=== PATIENT | male | born 1945 | race Caucasian/White ===

== ENCOUNTER 2016-08-18 11:30 | Outpatient (CLI) | payer MEDICARE, BC | END 2016-08-18 11:31 | disposition home or self-care (01) | DX: I48.91 Unspecified atrial fibrillation (principal); Z79.01 Long term (current) use of anticoagulants ==

== ENCOUNTER 2016-09-16 13:42 | Outpatient (CLI) | payer MEDICARE, BC | END 2016-09-16 13:43 | disposition home or self-care (01) | DX: I48.91 Unspecified atrial fibrillation (principal); Z79.01 Long term (current) use of anticoagulants ==

== ENCOUNTER 2016-10-13 12:14 | Outpatient (CLI) | payer BC, MEDICARE, OTHER ==
[2016-10-13 13:07] LABS: PT - PROTHROMBIN TIME 23.1 secs (9.9-12.6)
== END 2016-10-13 12:15 | disposition home or self-care (01) ==
LOC: LAB 12:14
PROVIDERS: ATTEND Pharmacist
DX: I48.91 Unspecified atrial fibrillation (principal)
CPT/HCPCS: 36415; 85610

== ENCOUNTER 2016-10-26 12:13 | Outpatient (CLI) | payer OTHER ==
[2016-10-26 13:34] LABS: INR 2.4 (0.8-1.2); PT - PROTHROMBIN TIME 26.9 secs (9.9-12.6)
== END 2016-10-26 12:14 | disposition home or self-care (01) ==
LOC: LAB 12:13
PROVIDERS: ATTEND Pharmacist
DX: I48.91 Unspecified atrial fibrillation (principal)
CPT/HCPCS: 36415; 85610

== ENCOUNTER 2016-11-23 11:44 | Outpatient (CLI) | payer MEDICARE ==
[2016-11-23 12:42] LABS: INR 2.3 (0.8-1.2); PT - PROTHROMBIN TIME 25.5 secs (9.9-12.6)
== END 2016-11-23 11:45 | disposition home or self-care (01) ==
LOC: LAB 11:44
PROVIDERS: ATTEND Pharmacist
DX: I48.91 Unspecified atrial fibrillation (principal); Z79.01 Long term (current) use of anticoagulants
CPT/HCPCS: 36415; 85610

== ENCOUNTER 2016-12-13 13:57 | Outpatient (CLI) | payer MEDICARE ==
[2016-12-13 14:37] LABS: INR 2.2 (0.8-1.2); PT - PROTHROMBIN TIME 24.3 secs (9.9-12.6)
== END 2016-12-13 13:58 | disposition home or self-care (01) ==
LOC: LAB 13:57
PROVIDERS: ATTEND Pharmacist
DX: I48.91 Unspecified atrial fibrillation (principal); Z79.01 Long term (current) use of anticoagulants
CPT/HCPCS: 36415; 85610

== ENCOUNTER 2017-01-08 15:24 | Outpatient (CLI) | payer MEDICARE, BC ==
[2017-01-08 15:51] LABS: INR 2.9 (0.8-1.2); PT - PROTHROMBIN TIME 32.6 secs (9.9-12.6)
== END 2017-01-08 15:25 | disposition home or self-care (01) ==
LOC: LAB 15:24
PROVIDERS: ATTEND Pharmacist
DX: I48.91 Unspecified atrial fibrillation (principal); Z79.01 Long term (current) use of anticoagulants
CPT/HCPCS: 36415; 85610

== ENCOUNTER 2017-01-22 15:02 | Emergency (ER) | payer MEDICARE, BC ==
[2017-01-22 15:16] VITALS: BP 137/82
--- NOTE | 2017-01-22 16:00 | ED Physician Documentation ---
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 It has increased in frequency the last few days. He has noticed streaks of blood on the toilet paper. He denies rectal pain or abdominal pain. He takes Coumadin for paroxysmal atrial fibrillation, and his last INR was 2.9. He has skipped 2 doses of Coumadin in the past 5 days because of the rectal bleeding. 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 Review of Systems Constitutional: denies: Fever Nose: denies: Congestion Throat: denies: Sore throat Cardiac: denies: Chest pain / pressure, Palpitations Respiratory: denies: Dyspnea, Cough GI: reports: Constipation, Bloody / black stool. denies: Abdominal Pain, Nausea , Vomiting : denies: Dysuria Skin: denies: Rash Musculoskeletal: reports: Back pain (chronically) Neurologic: denies: Focal weakness, Numbness, Headache PD PAST MEDICAL HISTORY - Past Medical History Cardiovascular: Atrial fibrillation Respiratory: COPD Neuro: CVA Endocrine/Autoimmune: None Musculoskeletal: Chronic back pain - Present Medications Home Medications: Ambulatory Orders Medication Instructions Recorded Confirmed Alfuzosin HCl [Alfuzosin HCl ER] 03/13/15 03/13/15 Atorvastatin [Lipitor] 03/13/15 03/13/15 Bisacodyl [Dulcolax] 03/13/15 03/13/15 Doxazosin [Cardura] 03/13/15 03/13/15 Formoterol Fumarate [Foradil] 03/13/15 03/13/15 Methadone 03/13/15 03/13/15 Omeprazole [PriLOSEC] 1 tab PO DAILY 03/13/15 03/13/15 Sennosides 03/13/15 03/13/15 Testosterone Micronized 03/13/15 03/13/15 Warfarin Sodium [Coumadin] 03/13/15 03/13/15 amLODIPine [Norvasc] 03/13/15 03/13/15 Hydrocortisone Acetate [Anucort-Hc] 25 mg RC BID PRN #10 supp.rect 01/22/17 - Allergies Allergies/Adverse Reactions: Allergies Allergy/AdvReac Type Severity Reaction Status Date / Time phenytoin sodium * Allergy Rash Verified 03/13/15 13:04 [From Dilantin] phenytoin sodium extended * Allergy Rash Verified 03/13/15 13:04 [From Dilantin] - Social History Does the pt smoke?: No Smoking Status: Never smoker Does the pt drink ETOH?: No Does the pt have substance abuse?: No - Immunizations Immunizations are current?: Yes PD ED PE NORMAL - Vitals Vital signs reviewed: Yes (Borderline hypertension initially.) - General General: Alert and oriented X 3, Well developed/nourished - HEENT HEENT: Atraumatic, EOMI, Moist mucous membranes, Pharynx benign - Neck Neck: No adenopathy, No JVD - Cardiac Cardiac: RRR, No murmur - Respiratory Respiratory: No respiratory distress, Clear bilaterally - Abdomen Abdomen: Normal bowel sounds, Soft, Non tender, Other (Stool heme positive.) - Back Back: No CVA TTP - Derm Derm: No rash - Extremities Extremities: No edema, No calf tenderness / cord - Neuro Neuro: Alert and oriented X 3, No motor deficit, No sensory deficit PD ED PE EXPANDED - Rectal Rectal: Heme Occult Pos - QC +, Hemorrhoid (internal) Results - Vitals Vitals: Oxygen O2 Source Room air - Labs Labs: Laboratory Tests 01/22/17 01/22/17 16:20 16:20 WBC 6.7 RBC 5.26 Hgb 15.2 Hct 45.6 MCV 86.7 MCH 29.0 MCHC 33.4 RDW 13.9 Plt Count 275 MPV 7.0 L Neut # 4.2 Lymph # 1.7 Alger # 0.6 Eos # 0.1 Baso # 0.1 Absolute Nucleated RBC 0.00 Nucleated RBCs 0.0 PT 16.6 H INR 1.5 H PD MEDICAL DECISION MAKING - ED course Complexity details: reviewed results, re-evaluated patient, considered differential, d/w patient ED course: The patient's presentation is most consistent with internal hemorrhoids. There is no fecal impaction noted on rectal exam, and no evidence of external hemorrhoids. No thrombosed hemorrhoids were detected. His CBC reveals normal hemoglobin and hematocrit. His INR is subtherapeutic at 1.5. I discussed with him the likely cause of his symptoms, treatment options for constipation, outpatient follow-up, as well as potentially worrisome signs or symptoms that should prompt reevaluation in the emergency department. He is being discharged with a prescription for Anusol HC. Departure - Departure Disposition: 01 Home, Self Care Clinical Impression: Internal hemorrhoid, bleeding, History of Coumadin therapy Condition: Stable Instructions: ED Hemorrhoids Follow-Up: [facility] [Provider Group] Prescriptions: Hydrocortisone Acetate [Anucort-Hc] 25 mg RC BID PRN #10 supp.rect PRN Reason: Rectal Discomfort Comments: 1. Continue using stool softeners, and consider fruits such as prunes, plums, apricots, and peaches. 2. Try to avoid straining when having bowel movements. 3. Follow-up with your primary physician next week as scheduled. 4. Return to the emergency department if you develop increasing rectal bleeding , increasing abdominal pain, or otherwise worsening symptoms. Discharge Date/Time: 01/22/17 17:04
[2017-01-22 16:29] LABS: BASOPHILS # (AUTO) 0.1 10^3/uL (0.0-0.1); BASOPHILS % (AUTO) 1.1 %; EOSINOPHILS # (AUTO) 0.1 10^3/uL (0.0-0.7); EOSINOPHILS % (AUTO) 1.6 %; HCT - HEMATOCRIT 45.6 % (42.0-52.0); HGB - HEMOGLOBIN 15.2 g/dL (14.0-18.0); LYMPHOCYTES # (AUTO) 1.7 10^3/uL (1.5-3.5); LYMPHOCYTES % (AUTO) 25.9 %; MEAN CORPUSCULAR HGB CONC 33.4 g/dL (32.0-36.0); MEAN CORPUSCULAR VOLUME 86.7 fL (80.0-94.0); MONOCYTES # (AUTO) 0.6 10^3/uL (0.0-1.0); MONOCYTES % (AUTO) 9.6 %; NEUTROPHILS # (AUTO) 4.2 10^3/uL (1.5-6.6); NEUTROPHILS % (AUTO) 61.8 %; RED BLOOD COUNT 5.26 10^6/uL (4.70-6.10); RED CELL DISTRIBUTION WIDTH 13.9 % (12.0-15.0); UNCORRECTED WHITE BLOOD COUNT 6.7 x10^3/uL; WHITE BLOOD COUNT 6.7 x10^3/uL (4.8-10.8)
[2017-01-22 16:35] LABS: INR 1.5 (0.8-1.2); PT - PROTHROMBIN TIME 16.6 secs (9.9-12.6)
== END 2017-01-22 17:04 | disposition home or self-care (01) ==
LOC: ED 15:02
DX: K64.8 Other hemorrhoids (principal); Z79.01 Long term (current) use of anticoagulants; M19.90 Unspecified osteoarthritis, unspecified site; J44.9 Chronic obstructive pulmonary disease, unspecified; Z86.73 Personal history of transient ischemic attack (TIA), and cerebral infarction without residual deficits
CPT/HCPCS: 36415; 85025; 85610; 99283

== ENCOUNTER 2017-02-05 11:40 | Outpatient (CLI) | payer MEDICARE, BC ==
[2017-02-05] MEDS ORDERED: IOPAMIDOL-300 100 ML VIAL ONE (11:57)
[2017-02-05] MEDS ORDERED: IOPAMIDOL-300 50 ML VIAL ONE (11:57)
[2017-02-05] MEDS ORDERED: IOPAMIDOL-300 100 ML VIAL IVP ONE (13:36)
[2017-02-05] MEDS ORDERED: IOPAMIDOL-300 50 ML VIAL PO ONE (13:38)
--- NOTE | 2017-02-05 17:16 | CT Report ---
CT OF THE ABDOMEN AND PELVIS WITH AND WITHOUT CONTRAST: 02/05/2017 CLINICAL INDICATION: History of right renal cell carcinoma, status post nephrectomy. TECHNIQUE: Axial CT images of the abdomen and pelvis were obtained prior to and following 100 mL of I sovue-300 intravenously as well as oral contrast. No previous CT is available for comparison. FINDINGS: Limited evaluation of the lung bases is unremarkable. ABDOMEN: On the unenhanced images, there is no evidence of left nephrolithiasis. The left kidney demo nstrates normal enhancement. The liver, spleen, pancreas and adrenal glands are unremarkable. Postope rative changes of right nephrectomy are present, with no evidence of recurrent or residual mass in th e right nephrectomy bed. No bowel dilatation, free gas, or free fluid is present. No abdominal adenop athy is seen. PELVIS: The pelvic organs and urinary bladder appear unremarkable. No pelvic adenopathy or free fluid is present. The osseous structures demonstrate degenerative changes. There is a sclerotic focus in the right cely c wing, likely representing a bone island, with no cortical destruction. IMPRESSION: POSTOPERATIVE CHANGES OF RIGHT NEPHRECTOMY. NO EVIDENCE OF METASTATIC DISEASE. In accordance with CT protocol optimization, one or more of the following dose reduction techniques w ere utilized for this exam: automated exposure control, adjustment of mA and/or KV based on patient size, or use of iterative reconstructive technique. JOB #: [id number] EXT JOB #:[id number]
== END 2017-02-05 11:41 | disposition home or self-care (01) ==
LOC: DI 11:40
PROVIDERS: ATTEND Internal Medicine
DX: R14.0 Abdominal distension (gaseous) (principal); Z85.528 Personal history of other malignant neoplasm of kidney; Z90.5 Acquired absence of kidney
CPT/HCPCS: 74178; Q9967

== ENCOUNTER 2017-02-10 13:37 | Outpatient (CLI) | payer MEDICARE, BC ==
[2017-02-10 13:54] LABS: INR 3.1 (0.8-1.2); PT - PROTHROMBIN TIME 35.2 secs (9.9-12.6)
== END 2017-02-10 13:38 | disposition home or self-care (01) ==
LOC: LAB 13:37
PROVIDERS: ATTEND Pharmacist
DX: I48.91 Unspecified atrial fibrillation (principal); Z79.01 Long term (current) use of anticoagulants
CPT/HCPCS: 36415; 85610

== ENCOUNTER 2017-08-12 11:33 | Outpatient (CLI) | payer BC, OTHER ==
[2017-08-12 11:54] LABS: INR 2.5 (0.8-1.2); PT - PROTHROMBIN TIME 27.4 secs (9.9-12.6)
== END 2017-08-12 11:34 | disposition home or self-care (01) ==
LOC: LAB.F 11:33 → LAB 11:34
PROVIDERS: ATTEND Internal Medicine
DX: I48.91 Unspecified atrial fibrillation (principal); Z79.01 Long term (current) use of anticoagulants
CPT/HCPCS: 36415; 85610

== ENCOUNTER 2017-09-12 17:06 | Outpatient (CLI) | payer MEDICARE, BC ==
[2017-09-12 18:24] LABS: INR 2.4 (0.8-1.2); PT - PROTHROMBIN TIME 25.7 secs (9.9-12.6)
== END 2017-09-12 17:07 | disposition home or self-care (01) ==
LOC: LAB 17:06
PROVIDERS: ATTEND Internal Medicine
DX: I48.91 Unspecified atrial fibrillation (principal); Z79.01 Long term (current) use of anticoagulants
CPT/HCPCS: 36415; 85610

== ENCOUNTER 2017-10-20 12:57 | Outpatient (CLI) | payer MEDICARE, BC ==
[2017-10-20 13:26] LABS: INR 1.4 (0.8-1.2); PT - PROTHROMBIN TIME 15.4 secs (9.9-12.6)
== END 2017-10-20 12:58 | disposition home or self-care (01) ==
LOC: LAB 12:57
PROVIDERS: ATTEND Pharmacist
DX: I48.91 Unspecified atrial fibrillation (principal); Z79.01 Long term (current) use of anticoagulants
CPT/HCPCS: 36415; 85610

== ENCOUNTER 2017-11-03 11:50 | Outpatient (CLI) | payer MEDICARE, BC ==
[2017-11-03 12:27] LABS: INR 2.2 (0.8-1.2); PT - PROTHROMBIN TIME 23.7 secs (9.9-12.6)
== END 2017-11-03 11:51 | disposition home or self-care (01) ==
LOC: LAB 11:50
PROVIDERS: ATTEND Pharmacist
DX: I48.91 Unspecified atrial fibrillation (principal); Z79.01 Long term (current) use of anticoagulants
CPT/HCPCS: 36415; 85610

== ENCOUNTER 2017-11-15 14:47 | Outpatient (CLI) | payer MEDICARE, BC ==
[2017-11-15 15:29] LABS: INR 1.8 (0.8-1.2); PT - PROTHROMBIN TIME 20.3 secs (9.9-12.6)
== END 2017-11-15 14:48 | disposition home or self-care (01) ==
LOC: LAB 14:47
PROVIDERS: ATTEND Pharmacist
DX: I48.91 Unspecified atrial fibrillation (principal); Z79.01 Long term (current) use of anticoagulants
CPT/HCPCS: 36415; 85610

== ENCOUNTER 2017-12-14 15:07 | Outpatient (CLI) | payer MEDICARE, BC ==
[2017-12-14 16:07] LABS: INR 2.6 (0.8-1.2); PT - PROTHROMBIN TIME 28.2 secs (9.9-12.6)
== END 2017-12-14 15:08 | disposition home or self-care (01) ==
LOC: LAB 15:07
PROVIDERS: ATTEND Pharmacist
DX: I48.91 Unspecified atrial fibrillation (principal); Z79.01 Long term (current) use of anticoagulants
CPT/HCPCS: 36415; 85610

== ENCOUNTER 2018-01-12 13:23 | Outpatient (CLI) | payer MEDICARE, BC ==
[2018-01-12 13:59] LABS: INR 2.3 (0.8-1.2); PT - PROTHROMBIN TIME 25.4 secs (9.9-12.6)
== END 2018-01-12 13:24 | disposition home or self-care (01) ==
LOC: LAB 13:23
PROVIDERS: ATTEND Pharmacist
DX: I48.91 Unspecified atrial fibrillation (principal); Z79.01 Long term (current) use of anticoagulants
CPT/HCPCS: 36415; 85610

== ENCOUNTER 2018-08-18 18:16 | Inpatient (IN) | payer BC, MEDICARE, OTHER ==
[2018-08-18] MEDS ORDERED: methylPREDNISolone SUCCINATE 125 MG/2 ML VIAL IVP STA (18:31)
[2018-08-18] MEDS ORDERED: IPRATROPIUM/ALBUTEROL 3 ML NEB INH STA (18:31)
[2018-08-18] MEDS ORDERED: levoFLOXacin 750 MG/150 ML 750 MG/150 ML BAG IV STA (18:31)
--- NOTE | 2018-08-18 18:34 | ED Physician Documentation ---
PD HPI DYSPNEA - Stated complaint Stated Complaint: SOA - Chief complaint Chief Complaint: Resp - History obtained from History obtained from: Patient - History of Present Illness Timing - onset: Other (This is a 73-year-old gentleman with history of atrial fibrillation on warfarin, also COPD. 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 Throughout the winter he is basically been sick all winter with cough and shortness of breath. He saw his doctor 3 times, and was repeatedly given steroids and antibiotics but continues to be sick and was worse today. He is coughing up thick white goop. He denies fevers. His normal pulse oximetry is about 90-93% when he is not ill. He does not wear oxygen at home.) Review of Systems Ten Systems: 10 systems reviewed and negative Constitutional: reports: Fatigue. denies: Fever, Chills Nose: denies: Rhinorrhea / runny nose, Congestion Cardiac: denies: Chest pain / pressure, Palpitations Respiratory: reports: Dyspnea, Cough. denies: Hemoptysis, Wheezing PD PAST MEDICAL HISTORY - Past Medical History Cardiovascular: Atrial fibrillation Respiratory: COPD Endocrine/Autoimmune: None Musculoskeletal: Chronic back pain - Present Medications Home Medications: Ambulatory Orders Medication Instructions Recorded Confirmed Alfuzosin HCl [Alfuzosin HCl ER] 03/13/15 03/13/15 Atorvastatin [Lipitor] 03/13/15 03/13/15 Bisacodyl [Dulcolax] 03/13/15 03/13/15 Doxazosin [Cardura] 03/13/15 03/13/15 Formoterol Fumarate [Foradil] 03/13/15 03/13/15 Methadone 03/13/15 03/13/15 Omeprazole [PriLOSEC] 1 tab PO DAILY 03/13/15 03/13/15 Sennosides 03/13/15 03/13/15 Testosterone Micronized 03/13/15 03/13/15 Warfarin Sodium [Coumadin] 03/13/15 03/13/15 amLODIPine [Norvasc] 03/13/15 03/13/15 Hydrocortisone Acetate [Anucort-Hc] 25 mg RC BID PRN #10 supp.rect 01/22/17 - Allergies Allergies/Adverse Reactions: Allergies Allergy/AdvReac Type Severity Reaction Status Date / Time phenytoin sodium * Allergy Rash Verified 08/18/18 18:24 [From Dilantin] phenytoin sodium extended * Allergy Rash Verified 08/18/18 18:24 [From Dilantin] - Social History Does the pt smoke?: No Smoking Status: Never smoker Does the pt drink ETOH?: No Does the pt have substance abuse?: No - Immunizations Immunizations are current?: Yes PD ED PE NORMAL - Vitals Vital signs reviewed: Yes (Hypoxemic and tachycardic) - General General: Alert and oriented X 3, No acute distress, Other (Mildly labored breathing but speaking in full sentences) - HEENT HEENT: PERRL, Pharynx benign - Neck Neck: Supple, no meningeal sign, No bony TTP - Cardiac Cardiac: RRR, No murmur - Respiratory Respiratory: Other (Mildly labored breathing, rhonchorous at the bases with wheezes throughout) - Abdomen Abdomen: Soft, Non tender - Back Back: No CVA TTP, No spinal TTP - Derm Derm: Normal color, Warm and dry - Extremities Extremities: No edema, No calf tenderness / cord - Neuro Neuro: Alert and oriented X 3, Normal speech Results - Vitals Vitals: Vital Signs - 24 hr 08/18/18 08/18/18 18:21 18:57 Temperature 37.7 C H Heart Rate 107 H 89 Respiratory 22 13 Rate Blood Pressure 136/93 H O2 Saturation 83 L Oxygen O2 Source Nasal cannula Oxygen Flow Rate 4 - EKG (time done) 1845 Rate: Rate (enter#) (87) Rhythm: NSR (with pac) Galva: Normal Intervals: Normal OR QRS: Low voltage Ischemia: Normal ST segments Computer interpretation: Agree with computer - Labs Labs: Laboratory Tests 08/18/18 08/18/18 08/18/18 18:40 18:40 18:40 WBC 7.9 RBC 4.99 Hgb 15.5 Hct 43.9 MCV 87.9 MCH 31.0 MCHC 35.3 RDW 14.2 Plt Count 298 MPV 7.1 L Neut # (Auto) 5.5 Lymph # (Auto) 0.9 L Rin[place] # (Auto) 1.4 H Eos # (Auto) 0.0 Baso # (Auto) 0.1 Absolute Nucleated RBC 0.01 Nucleated RBC % 0.1 PT INR Sodium 136 Potassium 3.5 Chloride 96 L Carbon Dioxide 30 Anion Gap 10.0 BUN 16 Creatinine 1.3 H Estimated GFR (MDRD) 54 L Glucose 137 H Lactic Acid Calcium 8.7 Total Bilirubin 1.1 H AST 40 ALT 25 Alkaline Phosphatase 73 Troponin I < 0.04 B-Natriuretic Peptide Total Protein 7.7 Albumin 4.5 Globulin 3.2 Albumin/Globulin Ratio 1.4 Lipase 23 08/18/18 08/18/18 08/18/18 18:40 18:40 18:40 WBC RBC Hgb Hct MCV MCH MCHC RDW Plt Count MPV Neut # (Auto) Lymph # (Auto) Rincon # (Auto) Eos # (Auto) Baso # (Auto) Absolute Nucleated RBC Nucleated RBC % PT 30.2 H INR 2.7 H Sodium Potassium Chloride Carbon Dioxide Anion Gap BUN Creatinine Estimated GFR (MDRD) Glucose Lactic Acid 1.3 Calcium Total Bilirubin AST ALT Alkaline Phosphatase Troponin I B-Natriuretic Peptide 46 Total Protein Albumin Globulin Albumin/Globulin Ratio Lipase - Rads (name of study) 1v chest Radiology: EMP read contemporaneously (Eventration of the right hemidiaphragm with positive Chilaiditi sign. No consolidation.) PD MEDICAL DECISION MAKING - ED course ED course: 73-year-old gentleman was COPD presents with apparent exacerbation, lung sounds are typical for same. No pneumonia on x-ray. Respiratory and blood cultures were collected and he was administered IV levofloxacin, Solu-Medrol and nebul izers here. He improved, but still remained hypoxic on room air and a call was placed to the hospitalist, Dr. Cleveland for admission at 7:53 PM. Departure - Departure Disposition: [facility] DC/Xfer Clinical Impression: COPD exacerbation, Hypoxemia, Adequate anticoagulation on anticoagulant therapy Condition: Serious
[2018-08-18 18:55] LABS: BASOPHILS # (AUTO) 0.1 10^3/uL (0.0-0.1); BASOPHILS % (AUTO) 1.3 %; EOSINOPHILS % (AUTO) 0.4 %; HGB - HEMOGLOBIN 15.5 g/dL (14.0-18.0); LYMPHOCYTES # (AUTO) 0.9 10^3/uL (1.5-3.5); LYMPHOCYTES % (AUTO) 11.4 %; MEAN CORPUSCULAR HGB CONC 35.3 g/dL (32.0-36.0); MEAN CORPUSCULAR VOLUME 87.9 fL (80.0-94.0); MEAN PLATELET VOLUME 7.1 fL (7.4-11.4); MONOCYTES # (AUTO) 1.4 10^3/uL (0.0-1.0); MONOCYTES % (AUTO) 17.8 %; NEUTROPHILS # (AUTO) 5.5 10^3/uL (1.5-6.6); NEUTROPHILS % (AUTO) 69.1 %; PLT - PLATELET COUNT 298 10^3/uL (130-450); RED BLOOD COUNT 4.99 10^6/uL (4.70-6.10); RED CELL DISTRIBUTION WIDTH 14.2 % (12.0-15.0); WHITE BLOOD COUNT 7.9 x10^3/uL (4.8-10.8)
[2018-08-18 19:01] LABS: INR 2.7 (0.8-1.2); PT - PROTHROMBIN TIME 30.2 secs (9.9-12.6)
[2018-08-18 19:06] LABS: ALBUMIN 4.5 g/dL (3.2-5.5); ALBUMIN/GLOBULIN RATIO 1.4 (1.0-2.2); BILIRUBIN,TOTAL 1.1 mg/dL (0.2-1.0); CALCIUM 8.7 mg/dL (8.5-10.3); CREATININE 1.3 mg/dL (0.6-1.2); TOTAL PROTEIN 7.7 g/dL (6.7-8.2)
--- NOTE | 2018-08-18 19:23 | XRAY Report ---
Reason: dyspnea Procedure Date: 08/18/2018 Accession Number: [id number] / [id number] Procedure: XR - Chest 1 View X-Ray CPT Code: 90974 FULL RESULT: EXAM: CHEST RADIOGRAPHY EXAM DATE: 08/18/2018 06:59 PM. CLINICAL HISTORY: Dyspnea. COMPARISON: CHEST 2 VIEW PA/LAT 03/13/2015 1:03 PM ABDOMEN/PELVIS W/WO 02/05/2017 1:16 PM. TECHNIQUE: 1 view. FINDINGS: Lungs/Pleura: No focal consolidation evident. No pleural effusion. No pneumothorax. Lung volumes were previously more pronounced. Mediastinum: Atherosclerotic aortic calcifications. Mentally tortuous descending thoracic aorta. Other: Right hemidiaphragm eventration. Hepatic flexure of colon noted beneath right hemidiaphragm. Probable right cardiophrenic angle fat pad. Bilateral glenohumeral joint degenerative changes. IMPRESSION: 1. No consolidation evident. 2. Poor inspiration. RADIA
[2018-08-18] MEDS ORDERED: IPRATROPIUM/ALBUTEROL 3 ML NEB INH PRN (21:38)
[2018-08-18] MEDS ORDERED: oxyCODONE ER 10 MG TABLET PO SCH (23:45)
[2018-08-19] MEDS: SODIUM CHLORIDE FLUSH 0.9% 10 ML SYRINGE IVP SCH ×3 (00:10→16:58)
--- NOTE | 2018-08-19 01:32 | HISTORY & PHYSICAL EXAMINATION ---
Chief Complaint - Chief Complaint Chief Complaint: dyspnea History of Present Illness - Admitted From Admitted From:: [facility] ED - History Obtained From Records Reviewed: yes History obtained from: patient - History of Present Illness HPI Comment/Other: Patient seen on 08/18/18 at 20:30pm Patient is a 73 y/o male with Hx of COPD/ ?emphysema who presented to the ED with complain of dyspnea. 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 He saw his PCP and was administered IM steroid shots and antibiotics (rocephin) with no significant improvement. He came in today because he woke up unable to breath. He reported a productive yellowish sputum. He denied chest pain, abd pain, nausea, vomiting or diarrhea. He reports chills. he has been very cold since return from [place]. He was given breathing treatment and steroids in the ED with marked improvement. However, his O2Sat drops to 83% when taken off oxygen. He does not wear oxygen at home. As a result of his clinical presentation, he is being admitted for further management. History - Past Medical History Cardiovascular: reports: Hypertension, High cholesterol, Atrial fibrillation Respiratory: reports: COPD Neuro: reports: TIA Endocrine/Autoimmune: reports: None GI: reports: GERD : reports: Benign prostate hypertrophy Musculoskeletal: reports: Chronic back pain MRSA Hx?: Yes Other Past Medical History: Chronic pain. Hx of alcoholism with withdrawal and seizures. Quit drinking in 1987. Hx of Hepatitis C s/p successful therapy. Hx or Renal cancer s/p right nephrectomy - Past Surgical History Other past surgical history: right nephrectomy - Family & Social History Family History: Father: Alcoholism, Sister: COPD/Emphysema Living arrangement: At home Living Situation: Alone - Substance History Use: Uses substance without health or social issues: NONE - POLST Patient has POLST: No POLST Status: Full Code Meds/Allgy - Home Medications Home Medications: Ambulatory Orders Medication Instructions Recorded Confirmed Home Medications Unobtainable 08/18/18 08/18/18 [HOME MEDICATIONS UNOBTAINABLE] - Allergies Allergies/Adverse Reactions: Allergies Allergy/AdvReac Type Severity Reaction Status Date / Time phenytoin sodium * Allergy Rash Verified 08/18/18 18:24 [From Dilantin] phenytoin sodium extended * Allergy Rash Verified 08/18/18 18:24 [From Dilantin] Review of Systems - Constitutional Constitutional: reports: Chills. denies: Fatigue, Fever - Eyes Eyes: denies: Blurred vision, Vision loss, Dipolpia - Ears, Nose & Throat Ears, Nose & Throat: denies: Nasal pain, Nasal discharge, Sore throat, Hoarseness - Cardiovascular Cariovascular: reports: Irregular heart rate. denies: Chest pain, Edema, Lig htheadedness, Syncope, Exertional dyspnea, Decr. exercise tolerance - Respiratory Respiratory: reports: Cough, Sputum production, Wheezing, SOB at rest - Gastrointestinal Gastrointestinal: reports: Reflux/heartburn. denies: Abdominal pain, Abdominal distention, Constipation, Diarrhea, Change in bowel habits, Nausea, Vomiting, Coffee grounds emesis - Genitourinary Genitourinary: denies: Dysuria, Frequency, Urgency, Hematuria - Musculoskeletal Musculoskeletal: reports: Other (Chronic pain) - Integumentary Integumentary: denies: Rash, Pruritis, Lesions - Neurological Neurological: denies: General weakness, Focal weakness, Headache, Dizziness - Psychiatric Psychiatric: denies: Depression, Anxiety - Endocrine Endocrine: denies: Polyuria, Polydypsia - Hematologic/Lymphatic Hematologic/Lymphatic: reports: Bruising. denies: Anemia, Petechiae Prior Level of Functionality: Patient lives alone Is independent of activities of daily living Spend bateman in [place] Exam - Vital Signs Vital Signs: Vital Signs x48h Temp Pulse Pulse Resp BP BP Pulse Ox 08/18/18 23:40 37 C 75 18 122/66 94 08/18/18 22:25 36.9 C 74 18 136/92 H 94 08/18/18 21:38 82 11 L 133/85 H 96 08/18/18 21:10 82 14 128/93 H 96 08/18/18 20:00 37.5 C 85 16 147/72 H 95 08/18/18 18:57 89 13 08/18/18 18:21 37.7 C H 107 H 22 136/93 H 83 L - Physical Exam General Appearance: positive: Alert, Mild distress Eyes Bilateral: positive: Normal inspection, PERRL, EOMI, Conjunctivae nml, No scleral icterus ENT: positive: ENT inspection nml, No signs of dehydration Neck: positive: Nml inspection, No JVD, Trachea midline Respiratory: positive: Chest non-tender, Wheezes. negative: Breath sounds nml Cardiovascular: positive: Irregularly irregular Abdomen: positive: Non-tender, Nml bowel sounds, No distention. negative: Guarding, Rebound Back: positive: Nml inspection Skin: positive: No rash, Warm, Dry Extremities: positive: Non-tender, Full ROM, Nml appearance, No pedal edema Neurologic/Psychiatric: positive: Oriented x3 Conclusion/Plan - Problem List (1) Acute respiratory failure with hypoxia Conclusion/Plan: Patient give duoneb and solumedrol in the ED Will continue solumedrol at 40mg IV q8hrs Maintain nasal oxygen Will assess for home Oxygen (2) COPD exacerbation Conclusion/Plan: Marked improvement with breathing treatment and steroids Will continue Patient was given 1 dose of levaquin IV. Will hold off on further administration (3) Atrial fibrillation Conclusion/Plan: On coumadin. Resume once verified Monitor INR Qualifiers: Atrial fibrillation type: chronic Qualified Code(s): I48.2 - Chronic atrial fibrillation (4) Hypertension Conclusion/Plan: On amlodopine. Please resume once verified (5) Hyperlipemia Conclusion/Plan: Resume atorvastatin once verified (6) BPH (benign prostatic hyperplasia) Conclusion/Plan: On alfuzosin. (7) GERD (gastroesophageal reflux disease) Conclusion/Plan: Protonix 40mg po daily ordered (8) Chronic pain Conclusion/Plan: On methadone at home Resume when verified. For now oxycodone ER 15mg po bid ordered Qualifiers: Chronic pain type: chronic pain syndrome Qualified Code(s): G89.4 - Chronic pain syndrome - Lab Results Fish Bones: 08/18/18 18:40 08/18/18 18:40 Core Measures - Anticipated LOS I expect patient to be DC'd or transferred within 96 hours.: Yes - DVT/VTE - Prophylaxis VTE/DVT Device ordered at admit?: Yes VTE/DVT Prophylaxis med ordered at admit?: No
[2018-08-19] MEDS ORDERED: methylPREDNISolone SUCCINATE 40 MG/ML VIAL IVP SCH (06:00)
[2018-08-19] MEDS: PANTOPRAZOLE 40 MG TABLET PO SCH (06:06)
[2018-08-19 06:46] LABS: BASOPHILS % (AUTO) 0.4 %; HGB - HEMOGLOBIN 14.8 g/dL (14.0-18.0); LYMPHOCYTES # (AUTO) 0.5 10^3/uL (1.5-3.5); LYMPHOCYTES % (AUTO) 12.4 %; MEAN CORPUSCULAR HGB CONC 33.7 g/dL (32.0-36.0); MEAN PLATELET VOLUME 7.2 fL (7.4-11.4); MONOCYTES # (AUTO) 0.1 10^3/uL (0.0-1.0); MONOCYTES % (AUTO) 2.2 %; NEUTROPHILS # (AUTO) 3.6 10^3/uL (1.5-6.6); PLT - PLATELET COUNT 269 10^3/uL (130-450); RED BLOOD COUNT 4.92 10^6/uL (4.70-6.10); RED CELL DISTRIBUTION WIDTH 14.4 % (12.0-15.0); WHITE BLOOD COUNT 4.2 x10^3/uL (4.8-10.8)
[2018-08-19 06:55] LABS: CALCIUM 8.6 mg/dL (8.5-10.3); CREATININE 1.4 mg/dL (0.6-1.2)
[2018-08-19 07:00] LABS: INR 2.7 (0.8-1.2)
[2018-08-19] MEDS: BENZOCAINE/MENTHOL LOZENGE MM PRN (09:43)
[2018-08-19] MEDS: POLYETHYLENE GLYCOL 3350 17 GM PACKET PO SCH (09:59)
[2018-08-19] MEDS ORDERED: SENNA 8.6 MG TABLET PO PRN (10:03)
[2018-08-19] MEDS ORDERED: POLYETHYLENE GLYCOL 3350 17 GM PACKET PO PRN (10:03)
[2018-08-19] MEDS: METHADONE 5 MG TABLET PO SCH ×3 (10:29→21:47)
[2018-08-19] MEDS: PIPERACILLIN/TAZOBACTAM 3.375 GM in SODIUM CHLORIDE 0.9% MINIBAG 100 ML IV ONE ×2 (13:56→16:12)
[2018-08-19] MEDS ORDERED: FUROSEMIDE 40 MG/4 ML VIAL IVP SCH (14:00)
[2018-08-19] MEDS: SPIRONOLACTONE 25 MG TABLET PO SCH (14:36)
[2018-08-19] MEDS ORDERED: METOPROLOL SUCCINATE 25 MG TABLET PO SCH (16:45)
[2018-08-19] MEDS: cefUROXime axetil 250 MG TABLET PO SCH (16:55)
[2018-08-19] MEDS: FUROSEMIDE 40 MG TABLET PO SCH (16:55)
[2018-08-19] MEDS ORDERED: PIPERACILLIN/TAZOBACTAM 3.375 GM in SODIUM CHLORIDE 0.9% MINIBAG 100 ML IV SCH (17:00)
[2018-08-19] MEDS ORDERED: LEVALBUTEROL 1.25 MG/3 ML NEB INH SCH (17:00)
--- NOTE | 2018-08-19 18:27 | PROVIDER PROGRESS NOTE ---
Subjective - Prog Note Date Prog Note Date: 08/19/18 Prog Note Time: 18:24 - Subjective Pt reports feeling: Improved Subjective: Alexi has some hesitation in a long hospital stay but admits to a very poor quality of life mostly related to his breathing, abdominal swelling and poor ability to do the tasks that he used to do. He denies chest pain, nausea, vomiting, a rash, increased dizziness, or a worsening cough. Current Medications - Current Medications Current Medications: Active Medications: Atorvastatin Calcium (Lipitor) 10 mg PO QPM YADIEL Cefuroxime Axetil (Ceftin) 500 mg PO BIDWM YADIEL Furosemide (Lasix) 60 mg PO BIDDIURETIC YADIEL Levalbuterol HCl (Xopenex) 1.25 mg INH Q4H PRN Levalbuterol HCl (Xopenex) 1.25 mg INH TID YADIEL Methadone HCl 10 mg PO 1400 YADIEL Methadone HCl 20 mg PO 0600 YADIEL Methadone HCl 15 mg PO 2000 YADIEL Diltiazem 60mg PO Q6H YADIEL Pantoprazole Sodium (Protonix) 40 mg PO QDAC YADIEL Polyethylene Glycol (Miralax) 17 gm PO DAILY YADIEL Spironolactone (Aldactone) 25 mg PO DAILY YADIEL Tamsulosin HCl (Flomax) 0.4 mg PO QPM [facility] Throat Lozenges (Cepacol) 1 lozenge MM Q2HR PRN Eliquis 5mg PO BID PO HOME meds: Albuterol Sulfate [Proair Respiclick] 2 puffs INH Q4H PRN 08/19/18 Alfuzosin HCl [Uroxatral] 10 mg PO QPM 08/19/18 Amlodipine Besylate [Norvasc] 10 mg PO QPM 08/19/18 Atorvastatin [Lipitor] 10 mg PO QPM 08/19/18 Methadone HCl [Dolophine HCl] 10 mg PO 1400 08/19/18 Methadone HCl [Dolophine HCl] 15 mg PO 2000 08/19/18 Methadone HCl [Dolophine HCl] 20 mg PO 0600 08/19/18 Mometasone Furoate [Asmanex] 2 puffs INH BID 08/19/18 Polyethylene Glycol 3350 [Miralax] 17 gm PO BID PRN 08/19/18 Senna [Senokot] 17.2 mg PO BID PRN 08/19/18 Tiotropium Br/Olodaterol HCl [Stiolto Respimat Inhal [place]] 2 puffs INH DAILY 08/19/18 Warfarin [Coumadin] 2.5 mg PO TUSA@209908/19/18 Warfarin [Coumadin] 5 mg PO SUMOWEFR@209908/19/18 Objective - Vital Signs/Intake & Output Reviewed Vital Signs: Yes Vital Signs: Vital Signs x48h Temp Pulse Pulse Resp BP Pulse Ox 08/19/18 16:46 36.6 C 84 16 130/73 95 08/19/18 12:02 36.8 C 98 18 95 08/19/18 11:52 98 18 Intake & Output: Intake & Output 08/16/18 08/17/18 08/18/18 08/19/18 23:59 23:59 23:59 23:59 Intake Total 150.000 960 Output Total 260 Balance 150.000 700 - Objective General Appearance: positive: Alert, Mild distress, Anxious Eyes Bilateral: positive: Normal inspection Eyes: OU Conjunctivae pale ENT: positive: Pharynx nml, No signs of dehydration Neck: positive: Thyroid nml, No JVD, Trachea midline Respiratory: positive: Chest non-tender, Wheezes, Rhonchi Cardiovascular: positive: No gallop, Irregularly irregular, Systolic murmur, Decreased pulse(s) Peripheral Pulses: 1+ Radial (R), 1+ Radial (L) Abdomen: positive: Non-tender, Nml bowel sounds, Other (enlarged abdominal girth, soft) Back: positive: Nml inspection Skin: positive: Color nml, No rash, Warm, Dry Extremities: positive: Non-tender, Pedal edema (pitting 1-2 BLEs), Joint swelling Neurologic/Psychiatric: positive: Oriented x3, CN's nml (2-12), Motor nml, Sensation nml, Depressed mood/affect Reflexes: Bicep (R): 3+, Bicep (L): 3+ - Lab Results Fish Bones: 08/20/18 06:33 08/20/18 06:33 Other Labs: Lab Results x24hrs 08/19/18 08/19/18 08/19/18 Range/Units 06:30 06:30 06:30 WBC 4.2 L (4.8-10.8) x10^3/uL RBC 4.92 (4.70-6.10) 10^6/uL Hgb 14.8 (14.0-18.0) g/dL Hct 43.8 (42.0-52.0) % MCV 89.0 (80.0-94.0) fL MCH 30.0 (27.0-31.0) pg MCHC 33.7 (32.0-36.0) g/dL RDW 14.4 (12.0-15.0) % Plt Count 269 (130-450) 10^3/uL MPV 7.2 L (7.4-11.4) fL Neut # (Auto) 3.6 (1.5-6.6) 10^3/uL Lymph # (Auto) 0.5 L (1.5-3.5) 10^3/uL [place] # (Auto) 0.1 (0.0-1.0) 10^3/uL Eos # (Auto) 0.0 (0.0-0.7) 10^3/uL Baso # (Auto) 0.0 (0.0-0.1) 10^3/uL Absolute Nucleated RBC 0.00 x10^3/uL Nucleated RBC % 0.1 /100WBC PT 30.0 H (9.9-12.6) secs INR 2.7 H (0.8-1.2) Sodium 134 L (135-145) mmol/L Potassium 4.3 (3.5-5.0) mmol/L Chloride 97 L (101-111) mmol/L Carbon Dioxide 28 (21-32) mmol/L Anion Gap 9.0 (6-13) BUN 19 (6-20) mg/dL Creatinine 1.4 H (0.6-1.2) mg/dL Estimated GFR (MDRD) 50 L (>89) Glucose 163 H (70-100) mg/dL Lactic Acid (0.5-2.2) mmol/L Calcium 8.6 (8.5-10.3) mg/dL Total Bilirubin (0.2-1.0) mg/dL AST (10-42) IU/L ALT (10-60) IU/L Alkaline Phosphatase (42-121) IU/L Troponin I (<0.49) ng/mL B-Natriuretic Peptide (5-100) pg/mL Total Protein (6.7-8.2) g/dL Albumin (3.2-5.5) g/dL Globulin (2.1-4.2) g/dL Albumin/Globulin Ratio (1.0-2.2) Lipase (22-51) U/L Influenza A (Rapid) (Negative) Influenza B (Rapid) (Negative) 08/18/18 08/18/18 08/18/18 Range/Units 19:37 18:40 18:40 WBC (4.8-10.8) x10^3/uL RBC (4.70-6.10) 10^6/uL Hgb (14.0-18.0) g/dL Hct (42.0-52.0) % MCV (80.0-94.0) fL MCH (27.0-31.0) pg MCHC (32.0-36.0) g/dL RDW (12.0-15.0) % Plt Count (130-450) 10^3/uL MPV (7.4-11.4) fL Neut # (Auto) (1.5-6.6) 10^3/uL Lymph # (Auto) (1.5-3.5) 10^3/uL [place] # (Auto) (0.0-1.0) 10^3/uL Eos # (Auto) (0.0-0.7) 10^3/uL Baso # (Auto) (0.0-0.1) 10^3/uL Absolute Nucleated RBC x10^3/uL Nucleated RBC % /100WBC PT 30.2 H (9.9-12.6) secs INR 2.7 H (0.8-1.2) Sodium (135-145) mmol/L Potassium (3.5-5.0) mmol/L Chloride (101-111) mmol/L Carbon Dioxide (21-32) mmol/L Anion Gap (6-13) BUN (6-20) mg/dL Creatinine (0.6-1.2) mg/dL Estimated GFR (MDRD) (>89) Glucose (70-100) mg/dL Lactic Acid 1.3 (0.5-2.2) mmol/L Calcium (8.5-10.3) mg/dL Total Bilirubin (0.2-1.0) mg/dL AST (10-42) IU/L ALT (10-60) IU/L Alkaline Phosphatase (42-121) IU/L Troponin I (<0.49) ng/mL B-Natriuretic Peptide (5-100) pg/mL Total Protein (6.7-8.2) g/dL Albumin (3.2-5.5) g/dL Globulin (2.1-4.2) g/dL Albumin/Globulin Ratio (1.0-2.2) Lipase (22-51) U/L Influenza A (Rapid) Negative (Negative) Influenza B (Rapid) Negative (Negative) 08/18/18 08/18/18 08/18/18 Range/Units 18:40 18:40 18:40 WBC (4.8-10.8) x10^3/uL RBC (4.70-6.10) 10^6/uL Hgb (14.0-18.0) g/dL Hct (42.0-52.0) % MCV (80.0-94.0) fL MCH (27.0-31.0) pg MCHC (32.0-36.0) g/dL RDW (12.0-15.0) % Plt Count (130-450) 10^3/uL MPV (7.4-11.4) fL Neut # (Auto) (1.5-6.6) 10^3/uL Lymph # (Auto) (1.5-3.5) 10^3/uL [place] # (Auto) (0.0-1.0) 10^3/uL Eos # (Auto) (0.0-0.7) 10^3/uL Baso # (Auto) (0.0-0.1) 10^3/uL Absolute Nucleated RBC x10^3/uL Nucleated RBC % /100WBC PT (9.9-12.6) secs INR (0.8-1.2) Sodium 136 (135-145) mmol/L Potassium 3.5 (3.5-5.0) mmol/L Chloride 96 L (101-111) mmol/L Carbon Dioxide 30 (21-32) mmol/L Anion Gap 10.0 (6-13) BUN 16 (6-20) mg/dL Creatinine 1.3 H (0.6-1.2) mg/dL Estimated GFR (MDRD) 54 L (>89) Glucose 137 H (70-100) mg/dL Lactic Acid (0.5-2.2) mmol/L Calcium 8.7 (8.5-10.3) mg/dL Total Bilirubin 1.1 H (0.2-1.0) mg/dL AST 40 (10-42) IU/L ALT 25 (10-60) IU/L Alkaline Phosphatase 73 (42-121) IU/L Troponin I < 0.04 (<0.49) ng/mL B-Natriuretic Peptide 46 (5-100) pg/mL Total Protein 7.7 (6.7-8.2) g/dL Albumin 4.5 (3.2-5.5) g/dL Globulin 3.2 (2.1-4.2) g/dL Albumin/Globulin Ratio 1.4 (1.0-2.2) Lipase 23 (22-51) U/L Influenza A (Rapid) (Negative) Influenza B (Rapid) (Negative) 08/18/18 Range/Units 18:40 WBC 7.9 (4.8-10.8) x10^3/uL RBC 4.99 (4.70-6.10) 10^6/uL Hgb 15.5 (14.0-18.0) g/dL Hct 43.9 (42.0-52.0) % MCV 87.9 (80.0-94.0) fL MCH 31.0 (27.0-31.0) pg MCHC 35.3 (32.0-36.0) g/dL RDW 14.2 (12.0-15.0) % Plt Count 298 (130-450) 10^3/uL MPV 7.1 L (7.4-11.4) fL Neut # (Auto) 5.5 (1.5-6.6) 10^3/uL Lymph # (Auto) 0.9 L (1.5-3.5) 10^3/uL [place] # (Auto) 1.4 H (0.0-1.0) 10^3/uL Eos # (Auto) 0.0 (0.0-0.7) 10^3/uL Baso # (Auto) 0.1 (0.0-0.1) 10^3/uL Absolute Nucleated RBC 0.01 x10^3/uL Nucleated RBC % 0.1 /100WBC PT (9.9-12.6) secs INR (0.8-1.2) Sodium (135-145) mmol/L Potassium (3.5-5.0) mmol/L Chloride (101-111) mmol/L Carbon Dioxide (21-32) mmol/L Anion Gap (6-13) BUN (6-20) mg/dL Creatinine (0.6-1.2) mg/dL Estimated GFR (MDRD) (>89) Glucose (70-100) mg/dL Lactic Acid (0.5-2.2) mmol/L Calcium (8.5-10.3) mg/dL Total Bilirubin (0.2-1.0) mg/dL AST (10-42) IU/L ALT (10-60) IU/L Alkaline Phosphatase (42-121) IU/L Troponin I (<0.49) ng/mL B-Natriuretic Peptide (5-100) pg/mL Total Protein (6.7-8.2) g/dL Albumin (3.2-5.5) g/dL Globulin (2.1-4.2) g/dL Albumin/Globulin Ratio (1.0-2.2) Lipase (22-51) U/L Influenza A (Rapid) (Negative) Influenza B (Rapid) (Negative) - Diagnostic Imaging Diagnostic Imaging Results: positive: Final report reviewed ABX Reporting Has patient been on IV antibiotics over the past 48 hours?: No Sepsis Event Note (H) - Evaluation Current Stage of Sepsis: Ruled out Assessment/Plan - Problem List (1) Acute respiratory failure with hypoxia Impression: - Patient drove to the ED - No oxygen use at home - No hx of SOL - Progressive SOB, leading to a poor quality of life in the past 1 year - Productive cough, + orthopnea - Has required oxygen 2-3L per nasal cannula - 82% upon arrival to the ED Plan: Scheduled Xopenex, incentive spirometry, sputum cx, continue oxygen per nasal cannula (2) Acute congestive heart failure with left ventricular diastolic dysfunction Impression: - A preliminary echo report from today showed a grade 1 diastolic dysfunction, EF of 60% and an enlarged LA - Previously not on any beta blockers, and only minimal diuretic - On exam he is noted to have an enlarged abdominal girth, BLE pitting edema, requires oxygen, becomes easily winded and has orthopnea - Toprol created some worsening shortness of breath, so now switched to diltiazem Plan: Start oral diltiazem later tonight, spironolactone, and increased dose of lasix (3) Cor pulmonale Impression: - A preliminary echo report from today shows a new finding of a moderately enlarged RV, normal PA pressures - On exam, he has an enlarged abdominal girth, chronic swelling to his BLEs and requires oxygen Plan: Start spironolactone, high dose lasix, and monitor labs, weight, I/O (4) COPD (chronic obstructive pulmonary disease) Impression: - Admits to start smoking at age 14 years, quit a few years ago - Uses Tiotropium Br/Olodaterol HCl [Stiolto Respimat Inhal [place]] 2 puffs INH DAILY at home Plan: Xopenex, prednisone, and empiric Ceftin (5) Atrial fibrillation Impression: - No rate control for home meds - Norvasc is contraindicated in diastolic dysfunction - INR was 2.7, so it needs to be less than 2 to start Eliquis Plan: Starting on metoprolol, holding coumadin since Eliquis is covered by insurance, and tele is off since he no longer has IV access Qualifiers: Atrial fibrillation type: chronic Qualified Code(s): I48.2 - Chronic atrial fibrillation (6) Methadone dependence Impression: -Scheduled frequent dosing of methadone at home, continues here - Painful joints shoulders, hips, and feet - Attempting to wean Plan: Monitor for pain, or oversedation
[2018-08-19] MEDS: LEVALBUTEROL 1.25 MG/3 ML NEB INH SCH ×2 (18:38→21:52)
[2018-08-19] MEDS ORDERED: TAMSULOSIN 0.4 MG CAPSULE PO SCH (21:00)
[2018-08-19] MEDS: ATORVASTATIN 10 MG TABLET PO SCH (21:46)
[2018-08-19] MEDS: SENNA 8.6 MG TABLET PO SCH ×2 (21:46→22:18)
[2018-08-19] MEDS ORDERED: diltiaZEM 30 MG TABLET PO ONE (22:49)
[2018-08-20] MEDS: SODIUM CHLORIDE FLUSH 0.9% 10 ML SYRINGE IVP SCH ×3 (01:12→16:28)
[2018-08-20] MEDS: BENZOCAINE/MENTHOL LOZENGE MM PRN ×5 (01:12→20:20)
[2018-08-20] MEDS ORDERED: guaiFENesin 600 MG TABLET PO SCH (02:00)
[2018-08-20] MEDS: LEVALBUTEROL 1.25 MG/3 ML NEB INH SCH ×3 (06:16→19:30)
[2018-08-20] MEDS: METHADONE 5 MG TABLET PO SCH ×3 (06:43→20:16)
[2018-08-20] MEDS: FUROSEMIDE 40 MG TABLET PO SCH (06:46)
[2018-08-20 06:52] LABS: BASOPHILS % (AUTO) 0.3 %; HGB - HEMOGLOBIN 14.7 g/dL (14.0-18.0); LYMPHOCYTES % (AUTO) 7.4 %; MEAN CORPUSCULAR HEMOGLOBIN 29.7 pg (27.0-31.0); MEAN CORPUSCULAR HGB CONC 33.3 g/dL (32.0-36.0); MONOCYTES % (AUTO) 11.7 %; NEUTROPHILS % (AUTO) 80.6 %; PLT - PLATELET COUNT 319 10^3/uL (130-450); RED BLOOD COUNT 4.94 10^6/uL (4.70-6.10); RED CELL DISTRIBUTION WIDTH 14.4 % (12.0-15.0); WHITE BLOOD COUNT 13.8 x10^3/uL (4.8-10.8)
[2018-08-20 07:00] LABS: CALCIUM 8.8 mg/dL (8.5-10.3); CREATININE 1.3 mg/dL (0.6-1.2)
[2018-08-20 07:03] LABS: INR 2.1 (0.8-1.2); PT - PROTHROMBIN TIME 23.9 secs (9.9-12.6)
[2018-08-20] MEDS: PANTOPRAZOLE 40 MG TABLET PO SCH (07:03)
[2018-08-20] MEDS: APIXABAN 5 MG TABLET PO SCH ×2 (07:14→20:20)
[2018-08-20 07:20] LABS: ABNORMAL LYMPHS % (MANUAL) 0 %; BAND NEUTROPHILS % (MANUAL) 0 %
[2018-08-20] MEDS ORDERED: predniSONE 20 MG TABLET PO SCH (08:00)
[2018-08-20] MEDS: POLYETHYLENE GLYCOL 3350 17 GM PACKET PO SCH (08:53)
[2018-08-20] MEDS: SPIRONOLACTONE 25 MG TABLET PO SCH (08:53)
[2018-08-20] MEDS: cefUROXime axetil 250 MG TABLET PO SCH (08:53)
[2018-08-20] MEDS: SENNA 8.6 MG TABLET PO SCH ×2 (08:53→20:20)
[2018-08-20 09:18] LABS: DIFFERENTIAL COMMENT MANUAL DIFFERENTIAL; LYMPHOCYTES # (MANUAL) 1.5 10^3/uL (1.5-3.5); LYMPHOCYTES % (MANUAL) 11 %; MONOCYTES # (MANUAL) 1.5 10^3/uL (0.0-1.0); MYELOCYTES % (MANUAL) 1 %; NEUTROPHILS # (MANUAL) 10.6 10^3/uL (1.5-6.6); NEUTROPHILS % (MANUAL) 77 %
[2018-08-20] MEDS ORDERED: MAGNESIUM CITRATE 296 ML BOTTLE PO PRN (11:43)
[2018-08-20] MEDS ORDERED: BISACODYL 10 MG SUPP PR PRN (11:43)
[2018-08-20] MEDS ORDERED: SODIUM CHLORIDE 0.9% 500 ML IV ONE (12:11)
[2018-08-20] MEDS: PIPERACILLIN/TAZOBACTAM 3.375 GM in SODIUM CHLORIDE 0.9% MINIBAG 100 ML IV SCH ×2 (12:17→17:45)
[2018-08-20] MEDS: OXYMETAZOLINE NASAL SPRAY NAS SCH ×2 (12:28→20:20)
[2018-08-20] MEDS: methylPREDNISolone SUCCINATE 40 MG/ML VIAL IVP SCH ×2 (13:43→21:39)
[2018-08-20] MEDS: FUROSEMIDE 40 MG/4 ML VIAL IVP SCH (13:44)
[2018-08-20] MEDS ORDERED: diltiaZEM CD 180 MG CAPSULE PO SCH (14:00)
--- NOTE | 2018-08-20 14:16 | PROVIDER PROGRESS NOTE ---
Subjective - Prog Note Date Prog Note Date: 08/20/18 Prog Note Time: 14:16 - Subjective Pt reports feeling: Improved Subjective: Al notes very little improvement from 24 hours ago and continues to complaint of shortness of breath with exertion, a non productive cough, and has apparent anxiety about this. He denies chest pain, nausea, vomiting, a rash, dizziness, or bleeding. He continues to have constipation today. Current Medications - Current Medications Current Medications: Active Medications: Apixaban (Eliquis) 5 mg PO BID YADIEL Atorvastatin Calcium (Lipitor) 10 mg PO QPM YADIEL Bisacodyl (Dulcolax Supp) 10 mg ND DAILY PRN Furosemide (Lasix Inj 40 Mg Vial) 40 mg IVP BIDDIURETIC YADIEL Guaifenesin (Mucinex) 600 mg PO BID YADIEL Piperacillin Sod/Tazobactam (Sod 3.375 gm/ Sodium Chloride) 100 mls @ 200 mls/hr IV Q6H YADIEL Lactulose (Enulose) 10 gm PO DAILY YADIEL Levalbuterol HCl (Xopenex) 1.25 mg INH Q4H PRN Levalbuterol HCl (Xopenex) 1.25 mg INH RTTID [facility] Magnesium Citrate 296 ml PO ONCE PRN Methadone HCl 10 mg PO 1400 YADIEL Methadone HCl 20 mg PO 0600 YADIEL Methadone HCl 15 mg PO 2000 YADIEL Methylprednisolone (Solu-Medrol 40mg Vial 40 mg IVP TID YADIEL Oxymetazoline HCl (Afrin) 2 sprays RICK BID YADIEL Pantoprazole Sodium (Protonix) 40 mg PO QDAC [facility] Polyethylene Glycol (Miralax) 17 gm PO DAILY [facility] Senna (Senokot) 8.6 mg PO BID [facility] Spironolactone (Aldactone) 25 mg PO DAILY YADIEL Tamsulosin HCl (Flomax) 0.4 mg PO QPM [facility] Throat Lozenges (Cepacol) 1 lozenge MM Q2HR PRN HOME meds: Albuterol Sulfate [Proair Respiclick] 2 puffs INH Q4H PRN 08/19/18 Alfuzosin HCl [Uroxatral] 10 mg PO QPM 08/19/18 Amlodipine Besylate [Norvasc] 10 mg PO QPM 08/19/18 Atorvastatin [Lipitor] 10 mg PO QPM 08/19/18 Methadone HCl [Dolophine HCl] 10 mg PO 1400 08/19/18 Methadone HCl [Dolophine HCl] 15 mg PO 199908/19/18 Methadone HCl [Dolophine HCl] 20 mg PO 0600 08/19/18 Mometasone Furoate [Asmanex] 2 puffs INH BID 08/19/18 Polyethylene Glycol 3350 [Miralax] 17 gm PO BID PRN 08/19/18 Senna [Senokot] 17.2 mg PO BID PRN 08/19/18 Tiotropium Br/Olodaterol HCl [Stiolto Respimat Inhal [place]] 2 puffs INH DAILY 08/19/18 Warfarin [Coumadin] 2.5 mg PO [facility]@2100 08/19/18 Warfarin [Coumadin] 5 mg PO SUMOWEFR@209908/19/18 Objective - Vital Signs/Intake & Output Reviewed Vital Signs: Yes Vital Signs: Vital Signs x48h Temp Pulse Pulse Resp BP BP Pulse Ox 08/20/18 13:15 49 L 14 08/20/18 12:12 36.5 C 49 L 18 115/66 94 08/20/18 08:04 36.4 C L 19 94 08/20/18 06:48 117/69 Intake & Output: Intake & Output 08/17/18 08/18/18 08/19/18 08/20/18 23:59 23:59 23:59 23:59 Intake Total 863.009 2469 700 Output Total 260 Balance 471.223 7108 700 - Objective General Appearance: positive: Alert, Moderate distress, Anxious Eyes Bilateral: positive: PERRL Eyes: OU Conjunctivae pale ENT: positive: Pharynx nml, No signs of dehydration Neck: positive: Nml inspection, Thyroid nml, No JVD, Trachea midline Respiratory: positive: Chest non-tender, No respiratory distress, Wheezes, Rhonchi Cardiovascular: positive: Regular rate & rhythm, No gallop, Bradycardia, Systolic murmur Peripheral Pulses: 1+ Radial (R), 1+ Radial (L) Abdomen: positive: Non-tender, Nml bowel sounds Back: positive: Nml inspection Skin: positive: No rash, Warm, Dry Extremities: positive: Non-tender, Pedal edema (chronic BLE edema, reduced from yesterday), Joint swelling Neurologic/Psychiatric: positive: Oriented x3, CN's nml (2-12), Motor nml, Sensation nml, Weakness, Depressed mood/affect, Other (tearful at times) Reflexes: Bicep (R): 3+, Bicep (L): 3+ - Lab Results Fish Bones: 08/21/18 06:02 08/21/18 06:02 Other Labs: Lab Results x24hrs 08/20/18 08/20/18 08/20/18 Range/Units 06:33 06:33 06:33 WBC 13.8 H (4.8-10.8) x10^3/uL RBC 4.94 (4.70-6.10) 10^6/uL Hgb 14.7 (14.0-18.0) g/dL Hct 44.0 (42.0-52.0) % MCV 89.0 (80.0-94.0) fL MCH 29.7 (27.0-31.0) pg MCHC 33.3 (32.0-36.0) g/dL RDW 14.4 (12.0-15.0) % Plt Count 319 (130-450) 10^3/uL MPV 7.0 L (7.4-11.4) fL Neut # (Auto) Not Reportable Lymph # (Auto) Not Reportable [place] # (Auto) Not Reportable Eos # (Auto) Not Reportable Baso # (Auto) Not Reportable Absolute Nucleated RBC Not Reportable Total Counted 100 Band Neuts % (Manual) 0 (0 - 10) % Abnorm Lymph % (Manual) 0 % Myelocytes % 1 H ( - 0) % Nucleated RBC % Not Reportable Neutrophils # (Manual) 10.6 H (1.5-6.6) 10^3/uL Lymphocytes # (Manual) 1.5 (1.5-3.5) 10^3/uL Monocytes # (Manual) 1.5 H (0.0-1.0) 10^3/uL Eosinophils # (Manual) 0.0 (0-0.7) 10^3/uL Basophils # (Manual) 0.0 (0-0.1) 10^3/uL Differential Comment MANUAL DIFFERENTIAL PT 23.9 H (9.9-12.6) secs INR 2.1 H (0.8-1.2) Sodium 134 L (135-145) mmol/L Potassium 4.1 (3.5-5.0) mmol/L Chloride 95 L (101-111) mmol/L Carbon Dioxide 28 (21-32) mmol/L Anion Gap 11.0 (6-13) BUN 28 H (6-20) mg/dL Creatinine 1.3 H (0.6-1.2) mg/dL Estimated GFR (MDRD) 54 L (>89) Glucose 114 H (70-100) mg/dL Calcium 8.8 (8.5-10.3) mg/dL ABX Reporting Has patient been on IV antibiotics over the past 48 hours?: Yes Sepsis Event Note (H) - Evaluation Current Stage of Sepsis: Ruled out Assessment/Plan - Problem List (1) Acute respiratory failure with hypoxia Impression: - Patient drove to the ED - No oxygen use at home - No hx of SOL, + COPD - Progressive SOB, leading to a poor quality of life in the past 1 year - Productive cough, + orthopnea - Has required oxygen 2-3L per nasal cannula, now for the second day - 82% upon arrival to the ED Plan: Scheduled Xopenex, incentive spirometry, sputum cx, continue oxygen per nasal cannula (2) Acute congestive heart failure with left ventricular diastolic dysfunction Impression: - A preliminary echo report from today showed a grade 1 diastolic dysfunction, EF of 60% and an enlarged LA - Previously not on any beta blockers, and only minimal diuretic - On exam he is noted to have an enlarged abdominal girth, BLE pitting edema, requires oxygen, becomes easily winded and has orthopnea - Toprol created some worsening shortness of breath, so now switched to diltiazem - Now with being bradycardic from 45-60's early this morning, the diltiazem will be on hold Plan: HOLD oral dilt, continue spironolactone, and IV lasix (3) Cor pulmonale Impression: - A preliminary echo report from today shows a new finding of a moderately enlarged RV, normal PA pressures - On exam, he has an enlarged abdominal girth, chronic swelling to his BLEs and requires oxygen Plan: Continue spironolactone, high dose lasix, and monitor labs, weight, I/O (4) COPD (chronic obstructive pulmonary disease) Impression: - Admits to start smoking at age 14 years, quit a few years ago - Uses Tiotropium Br/Olodaterol HCl [Stiolto Respimat Inhal [place]] 2 puffs INH DAILY at home - Is still requiring oxygen Plan: Xopenex, prednisone, and empiric Ceftin Qualifiers: COPD type: COPD with acute exacerbation Qualified Code(s): J44.1 - Chronic obstructive pulmonary disease with (acute) exacerbation (5) Atrial fibrillation Impression: - No rate control for home meds - Norvasc is contraindicated in diastolic dysfunction - INR was 1.9, so it needs to be less than 2 to start Eliquis - First dose can be given this evening Plan: HOLDing dilt since bradycardic, holding coumadin since Eliquis is covered by insurance, and telemetry Qualifiers: Atrial fibrillation type: chronic Qualified Code(s): I48.2 - Chronic atrial fibrillation (6) Methadone dependence Impression: -Scheduled frequent dosing of methadone at home, continues here - Painful joints shoulders, hips, and feet - Attempting to wean Plan: Monitor for pain, or oversedation (7) Anxiety and depression Impression: - Easily becomes tearful with each exam - More so when speaking about late - No antidepressants on home med list - Will defer to primary, anxiety may improve if he is breathing better Plan: Continue to educate and support (8) Hiatal hernia Impression: - Chest CT shows a small hiatal hernia - Patient unaware of this finding - Given teaching materials Plan: Continue PPI, eat upright, small meals, regular BMs (9) Constipation Impression: - 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
[2018-08-20 16:12] LABS: INR 1.9 (0.8-1.2); PT - PROTHROMBIN TIME 21.2 secs (9.9-12.6)
[2018-08-20 16:20] LABS: ALBUMIN 4.6 g/dL (3.2-5.5); ALBUMIN/GLOBULIN RATIO 1.4 (1.0-2.2); BILIRUBIN,TOTAL 1.2 mg/dL (0.2-1.0); CALCIUM 8.9 mg/dL (8.5-10.3); CREATININE 1.6 mg/dL (0.6-1.2); TOTAL PROTEIN 7.9 g/dL (6.7-8.2)
[2018-08-20 16:45] LABS: HB2 TOTAL 17.1 g/dL; HEMOGLOBIN A1C 0.62 g/dL; HEMOGLOBIN A1C % 5.5 % (4.6-6.2)
--- NOTE | 2018-08-20 17:43 | CT Report ---
Reason: hypoxia, evaluate for pneumonia Procedure Date: 08/20/2018 Accession Number: [id number] / [id number] Procedure: CT - CHEST WO CPT Code: FULL RESULT: EXAM: CT CHEST EXAM DATE: 08/20/2018 05:13 PM. CLINICAL HISTORY: Hypoxia, evaluate for pneumonia. COMPARISONS: None. TECHNIQUE: Routine helical CT imaging was performed through the chest. IV contrast: None. Reconstructions: Coronal and sagittal. In accordance with CT protocol optimization, one or more of the following dose reduction techniques were utilized for this exam: automated exposure control, adjustment of mA and/or KV based on patient size, or use of iterative reconstructive technique. FINDINGS: Lungs/Pleura: Linear atelectasis versus scarring seen at the lingula. Additional mild atelectasis seen at the inferior pulmonary bases. No other focal airspace consolidation. Bilateral central bronchial wall thickening noted with mild cylindrical bronchiectasis, consistent with reactive airways or bronchitis. No evidence for chronic interstitial pulmonary disease. No pleural effusions, pleural thickening, pleural calcification, or pneumothorax. Mediastinum: Unremarkable visualized thyroid. Normal heart size. No pericardial effusion. No enlarged mediastinal hilar lymph nodes. Mild atheromatous calcification of the aortic arch. Bones: Degenerative disk disease seen in the spine. No focal suspicious osseous lesions. Visualized Abdomen: Small hiatal hernia noted. 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 Other: None. IMPRESSION: 1. Bilateral central bronchial wall thickening with mild bilateral cylindrical bronchiectasis likely reflects chronic airways disease. 2. No focal suspicious airspace consolidation or pleural effusion. 3. No mediastinal or hilar lymphadenopathy. RADIA
[2018-08-20] MEDS: LACTULOSE 10 GM /15 ML UDC PO SCH (17:44)
[2018-08-20] MEDS ORDERED: LIDOCAINE 2% URO-JET 5 ML SYRINGE UR PRN (19:48)
[2018-08-20] MEDS: guaiFENesin 600 MG TABLET PO SCH (20:18)
[2018-08-20] MEDS: TAMSULOSIN 0.4 MG CAPSULE PO SCH (20:18)
[2018-08-20] MEDS: ATORVASTATIN 10 MG TABLET PO SCH (20:20)
[2018-08-20] MEDS: SODIUM CHLORIDE FLUSH 0.9% 10 ML SYRINGE IVP PRN (21:39)
[2018-08-21] MEDS: PIPERACILLIN/TAZOBACTAM 3.375 GM in SODIUM CHLORIDE 0.9% MINIBAG 100 ML IV SCH ×4 (01:14→17:22)
[2018-08-21] MEDS: SODIUM CHLORIDE FLUSH 0.9% 10 ML SYRINGE IVP PRN ×5 (01:15→21:45)
[2018-08-21] MEDS: SODIUM CHLORIDE FLUSH 0.9% 10 ML SYRINGE IVP SCH ×3 (03:02→17:23)
[2018-08-21 06:17] LABS: BASOPHILS % (AUTO) 0.1 %; LYMPHOCYTES # (AUTO) 0.6 10^3/uL (1.5-3.5); LYMPHOCYTES % (AUTO) 6.1 %; MEAN CORPUSCULAR HEMOGLOBIN 29.7 pg (27.0-31.0); MEAN CORPUSCULAR HGB CONC 33.6 g/dL (32.0-36.0); MEAN CORPUSCULAR VOLUME 88.6 fL (80.0-94.0); MEAN PLATELET VOLUME 7.1 fL (7.4-11.4); MONOCYTES # (AUTO) 0.4 10^3/uL (0.0-1.0); MONOCYTES % (AUTO) 3.4 %; NEUTROPHILS # (AUTO) 9.6 10^3/uL (1.5-6.6); NEUTROPHILS % (AUTO) 90.4 %; PLT - PLATELET COUNT 293 10^3/uL (130-450); RED BLOOD COUNT 4.71 10^6/uL (4.70-6.10); RED CELL DISTRIBUTION WIDTH 14.6 % (12.0-15.0); WHITE BLOOD COUNT 10.6 x10^3/uL (4.8-10.8)
[2018-08-21 06:20] LABS: INR 2.1 (0.8-1.2); PT - PROTHROMBIN TIME 23.4 secs (9.9-12.6)
[2018-08-21 06:26] LABS: CALCIUM 8.3 mg/dL (8.5-10.3); CREATININE 1.3 mg/dL (0.6-1.2)
[2018-08-21] MEDS: METHADONE 5 MG TABLET PO SCH ×3 (06:30→20:34)
[2018-08-21] MEDS: FUROSEMIDE 40 MG/4 ML VIAL IVP SCH ×2 (06:31→13:44)
[2018-08-21] MEDS: PANTOPRAZOLE 40 MG TABLET PO SCH ×2 (06:31→20:37)
[2018-08-21] MEDS: methylPREDNISolone SUCCINATE 40 MG/ML VIAL IVP SCH ×3 (06:32→21:45)
[2018-08-21] MEDS: LEVALBUTEROL 1.25 MG/3 ML NEB INH SCH ×3 (08:25→21:01)
[2018-08-21] MEDS: OXYMETAZOLINE NASAL SPRAY NAS SCH ×2 (08:49→20:37)
[2018-08-21] MEDS: LACTULOSE 10 GM /15 ML UDC PO SCH (08:50)
[2018-08-21] MEDS: guaiFENesin 600 MG TABLET PO SCH (08:50)
[2018-08-21] MEDS: SENNA 8.6 MG TABLET PO SCH ×2 (08:50→20:37)
[2018-08-21] MEDS: APIXABAN 5 MG TABLET PO SCH ×2 (08:50→20:35)
[2018-08-21] MEDS: SPIRONOLACTONE 25 MG TABLET PO SCH (08:50)
[2018-08-21] MEDS: SACCHAROMYCES BOULARDII 250 MG CAPSULE PO SCH ×2 (08:50→17:23)
[2018-08-21] MEDS: POLYETHYLENE GLYCOL 3350 17 GM PACKET PO SCH (08:51)
[2018-08-21] MEDS: diltiaZEM CD 120 MG CAPSULE PO SCH (11:34)
[2018-08-21] MEDS ORDERED: diltiaZEM CD 120 MG CAPSULE PO SCH (12:00)
[2018-08-21] MEDS ORDERED: SODIUM CHLORIDE 0.65% NASAL SPRAY NAS PRN (12:34)
--- NOTE | 2018-08-21 12:50 | PROVIDER PROGRESS NOTE ---
Subjective - Prog Note Date Prog Note Date: 08/21/18 Prog Note Time: 12:43 - Subjective Pt reports feeling: Improved Subjective: Al continues to complain of "junk caught in the back of my throat" that he just cannot clear with coughing. He has several concerns, all of them being addressed such as his hiatal hernia, continued heart failure treatment, the worry about fungal pathogens that could be contributing to his failure to improve, and his ongoing constipation. He denies chest pain, chest pressure, nausea, vomiting, diarrhea, a rash, dizziness, or a change in sputum. Current Medications - Current Medications Current Medications: Active Medications: Apixaban (Eliquis) 5 mg PO BID YADIEL Atorvastatin Calcium (Lipitor) 10 mg PO QPM YADIEL Bisacodyl (Dulcolax Supp) 10 mg MO DAILY PRN Diltiazem HCl (Cardizem Cd) 120 mg PO DAILY YADIEL Fluconazole (Diflucan) 200 mg PO DAILY YADIEL Fluticasone Propionate (Flonase) 1 sprays RICK DAILY YADIEL Furosemide (Lasix Inj 40 Mg Vial) 40 mg IVP BIDDIURETIC YADIEL Guaifenesin (Mucinex) 600 mg PO BID YADIEL Piperacillin Sod/Tazobactam (Sod 3.375 gm/ Sodium Chloride) 100 mls @ 200 mls/hr IV Q6H YADIEL Lactulose (Enulose) 10 gm PO DAILY YADIEL Levalbuterol HCl (Xopenex) 1.25 mg INH Q4H PRN Levalbuterol HCl (Xopenex) 1.25 mg INH RTTID YADIEL Lidocaine HCl (Xylocaine Uro-Jet 2%) 2.5 ml UR Q6H PRN Magnesium Citrate 296 ml PO ONCE PRN Methadone HCl 10 mg PO 1400 YADIEL Methadone HCl 20 mg PO 0600 YADIEL Methadone HCl 15 mg PO 2000 YADIEL Oxymetazoline HCl (Afrin) 2 sprays RICK BID YADIEL Pantoprazole Sodium (Protonix) 40 mg PO BID YADIEL Polyethylene Glycol (Miralax) 17 gm PO DAILY YADIEL Prednisone 60mg PO daily YADIEL Saccharomyces Boulardii (Florastor) 250 mg PO BIDWM YADIEL Senna (Senokot) 17.2 mg PO BID YADIEL Sodium Chloride ([place]) 2 sprays RICK Q4HR PRN Spironolactone (Aldactone) 25 mg PO DAILY YADIEL Sucralfate (Carafate) 1 gm PO 0700,1100,1600,2200 YADIEL Tamsulosin HCl (Flomax) 0.8 mg PO QPM YADIEL Throat Lozenges (Cepacol) 1 lozenge MM Q2HR PRN HOME meds: Albuterol Sulfate [Proair Respiclick] 2 puffs INH Q4H PRN 08/19/18 Alfuzosin HCl [Uroxatral] 10 mg PO QPM 08/19/18 Amlodipine Besylate [Norvasc] 10 mg PO QPM 08/19/18 Atorvastatin [Lipitor] 10 mg PO QPM 08/19/18 Methadone HCl [Dolophine HCl] 10 mg PO 139908/19/18 Methadone HCl [Dolophine HCl] 15 mg PO 199908/19/18 Methadone HCl [Dolophine HCl] 20 mg PO 0608/19/18 Mometasone Furoate [Asmanex] 2 puffs INH BID 08/19/18 Polyethylene Glycol 3350 [Miralax] 17 gm PO BID PRN 08/19/18 Senna [Senokot] 17.2 mg PO BID PRN 08/19/18 Tiotropium Br/Olodaterol HCl [Stiolto Respimat Inhal [place]] 2 puffs INH DAILY 08/19/18 Warfarin [Coumadin] 2.5 mg PO TUSA@209908/19/18 Warfarin [Coumadin] 5 mg PO SUMOWEFR@209908/19/18 Objective - Vital Signs/Intake & Output Reviewed Vital Signs: Yes Vital Signs: Vital Signs x48h Temp Pulse Pulse Resp BP Pulse Ox 08/21/18 11:22 36.6 C 18 126/86 H 95 08/21/18 08:25 80 16 08/21/18 08:00 36.6 C 76 18 118/74 93 08/21/18 05:00 36.6 C 76 16 142/75 H 94 Intake & Output: Intake & Output 08/18/18 08/19/18 08/20/18 08/21/18 23:59 23:59 23:59 23:59 Intake Total 620.176 2585 1970 526 Output Total 119 271 1924 Balance 912.364 9157 1570 -1924 - Objective General Appearance: positive: No acute distress, Alert, Anxious Eyes Bilateral: positive: PERRL Eyes: OU Conjunctivae pale ENT: positive: Pharynx nml, No signs of dehydration Neck: positive: Thyroid nml, No JVD, Trachea midline Respiratory: positive: Chest non-tender, No respiratory distress, Wheezes, Rhonchi Cardiovascular: positive: No gallop, Irregularly irregular, Tachycardia, Systolic murmur, Decreased pulse(s) Peripheral Pulses: 1+ Radial (R), 1+ Radial (L) Abdomen: positive: Non-tender, Nml bowel sounds, Other (rounded, soft) Back: positive: Nml inspection Skin: positive: No rash, Warm, Dry, Other (bronze, tanned) Extremities: positive: Non-tender, Full ROM, Nml appearance Neurologic/Psychiatric: positive: Oriented x3, CN's nml (2-12), Motor nml, Sensation nml, Mood/affect nml, Other (anxious at times) Reflexes: Bicep (R): 3+, Bicep (L): 3+ - Lab Results Fish Bones: 08/21/18 06:02 08/21/18 06:02 Other Labs: Lab Results x24hrs 08/21/18 08/21/18 08/21/18 Range/Units 06:02 06:02 06:02 WBC 10.6 (4.8-10.8) x10^3/uL RBC 4.71 (4.70-6.10) 10^6/uL Hgb 14.0 (14.0-18.0) g/dL Hct 41.7 L (42.0-52.0) % MCV 88.6 (80.0-94.0) fL MCH 29.7 (27.0-31.0) pg MCHC 33.6 (32.0-36.0) g/dL RDW 14.6 (12.0-15.0) % Plt Count 293 (130-450) 10^3/uL MPV 7.1 L (7.4-11.4) fL Neut # (Auto) 9.6 H (1.5-6.6) 10^3/uL Lymph # (Auto) 0.6 L (1.5-3.5) 10^3/uL [place] # (Auto) 0.4 (0.0-1.0) 10^3/uL Eos # (Auto) 0.0 (0.0-0.7) 10^3/uL Baso # (Auto) 0.0 (0.0-0.1) 10^3/uL Absolute Nucleated RBC 0.01 x10^3/uL Nucleated RBC % 0.0 /100WBC PT 23.4 H (9.9-12.6) secs INR 2.1 H (0.8-1.2) Sodium 133 L (135-145) mmol/L Potassium 4.2 (3.5-5.0) mmol/L Chloride 95 L (101-111) mmol/L Carbon Dioxide 32 (21-32) mmol/L Anion Gap 6.0 (6-13) BUN 32 H (6-20) mg/dL Creatinine 1.3 H (0.6-1.2) mg/dL Estimated GFR (MDRD) 54 L (>89) Glucose 147 H (70-100) mg/dL Glycated Hemoglobin (4.6-6.2) % Estim Average Glucose (70-100) Calcium 8.3 L (8.5-10.3) mg/dL Magnesium (1.7-2.8) mg/dL Total Bilirubin (0.2-1.0) mg/dL AST (10-42) IU/L ALT (10-60) IU/L Alkaline Phosphatase (42-121) IU/L Troponin I (<0.49) ng/mL B-Natriuretic Peptide (5-100) pg/mL Total Protein (6.7-8.2) g/dL Albumin (3.2-5.5) g/dL Globulin (2.1-4.2) g/dL Albumin/Globulin Ratio (1.0-2.2) TSH (0.34-5.60) uIU/mL 08/20/18 08/20/18 08/20/18 Range/Units 16:00 16:00 16:00 WBC (4.8-10.8) x10^3/uL RBC (4.70-6.10) 10^6/uL Hgb (14.0-18.0) g/dL Hct (42.0-52.0) % MCV (80.0-94.0) fL MCH (27.0-31.0) pg MCHC (32.0-36.0) g/dL RDW (12.0-15.0) % Plt Count (130-450) 10^3/uL MPV (7.4-11.4) fL Neut # (Auto) (1.5-6.6) 10^3/uL Lymph # (Auto) (1.5-3.5) 10^3/uL [place] # (Auto) (0.0-1.0) 10^3/uL Eos # (Auto) (0.0-0.7) 10^3/uL Baso # (Auto) (0.0-0.1) 10^3/uL Absolute Nucleated RBC x10^3/uL Nucleated RBC % /100WBC PT (9.9-12.6) secs INR (0.8-1.2) Sodium (135-145) mmol/L Potassium (3.5-5.0) mmol/L Chloride (101-111) mmol/L Carbon Dioxide (21-32) mmol/L Anion Gap (6-13) BUN (6-20) mg/dL Creatinine (0.6-1.2) mg/dL Estimated GFR (MDRD) (>89) Glucose (70-100) mg/dL Glycated Hemoglobin 5.5 (4.6-6.2) % Estim Average Glucose 111 H (70-100) Calcium (8.5-10.3) mg/dL Magnesium (1.7-2.8) mg/dL Total Bilirubin (0.2-1.0) mg/dL AST (10-42) IU/L ALT (10-60) IU/L Alkaline Phosphatase (42-121) IU/L Troponin I < 0.04 (<0.49) ng/mL B-Natriuretic Peptide (5-100) pg/mL Total Protein (6.7-8.2) g/dL Albumin (3.2-5.5) g/dL Globulin (2.1-4.2) g/dL Albumin/Globulin Ratio (1.0-2.2) TSH 2.09 (0.34-5.60) uIU/mL 08/20/18 08/20/18 08/20/18 Range/Units 16:00 16:00 16:00 WBC (4.8-10.8) x10^3/uL RBC (4.70-6.10) 10^6/uL Hgb (14.0-18.0) g/dL Hct (42.0-52.0) % MCV (80.0-94.0) fL MCH (27.0-31.0) pg MCHC (32.0-36.0) g/dL RDW (12.0-15.0) % Plt Count (130-450) 10^3/uL MPV (7.4-11.4) fL Neut # (Auto) (1.5-6.6) 10^3/uL Lymph # (Auto) (1.5-3.5) 10^3/uL [place] # (Auto) (0.0-1.0) 10^3/uL Eos # (Auto) (0.0-0.7) 10^3/uL Baso # (Auto) (0.0-0.1) 10^3/uL Absolute Nucleated RBC x10^3/uL Nucleated RBC % /100WBC PT (9.9-12.6) secs INR (0.8-1.2) Sodium 133 L (135-145) mmol/L Potassium 4.3 (3.5-5.0) mmol/L Chloride 94 L (101-111) mmol/L Carbon Dioxide 27 (21-32) mmol/L Anion Gap 12.0 (6-13) BUN 36 H (6-20) mg/dL Creatinine 1.6 H (0.6-1.2) mg/dL Estimated GFR (MDRD) 43 L (>89) Glucose 132 H (70-100) mg/dL Glycated Hemoglobin (4.6-6.2) % Estim Average Glucose (70-100) Calcium 8.9 (8.5-10.3) mg/dL Magnesium 2.3 (1.7-2.8) mg/dL Total Bilirubin 1.2 H (0.2-1.0) mg/dL AST 33 (10-42) IU/L ALT 24 (10-60) IU/L Alkaline Phosphatase 64 (42-121) IU/L Troponin I (<0.49) ng/mL B-Natriuretic Peptide 147 H (5-100) pg/mL Total Protein 7.9 (6.7-8.2) g/dL Albumin 4.6 (3.2-5.5) g/dL Globulin 3.3 (2.1-4.2) g/dL Albumin/Globulin Ratio 1.4 (1.0-2.2) TSH (0.34-5.60) uIU/mL 08/20/18 Range/Units 16:00 WBC (4.8-10.8) x10^3/uL RBC (4.70-6.10) 10^6/uL Hgb (14.0-18.0) g/dL Hct (42.0-52.0) % MCV (80.0-94.0) fL MCH (27.0-31.0) pg MCHC (32.0-36.0) g/dL RDW (12.0-15.0) % Plt Count (130-450) 10^3/uL MPV (7.4-11.4) fL Neut # (Auto) (1.5-6.6) 10^3/uL Lymph # (Auto) (1.5-3.5) 10^3/uL [place] # (Auto) (0.0-1.0) 10^3/uL Eos # (Auto) (0.0-0.7) 10^3/uL Baso # (Auto) (0.0-0.1) 10^3/uL Absolute Nucleated RBC x10^3/uL Nucleated RBC % /100WBC PT 21.2 H (9.9-12.6) secs INR 1.9 H (0.8-1.2) Sodium (135-145) mmol/L Potassium (3.5-5.0) mmol/L Chloride (101-111) mmol/L Carbon Dioxide (21-32) mmol/L Anion Gap (6-13) BUN (6-20) mg/dL Creatinine (0.6-1.2) mg/dL Estimated GFR (MDRD) (>89) Glucose (70-100) mg/dL Glycated Hemoglobin (4.6-6.2) % Estim Average Glucose (70-100) Calcium (8.5-10.3) mg/dL Magnesium (1.7-2.8) mg/dL Total Bilirubin (0.2-1.0) mg/dL AST (10-42) IU/L ALT (10-60) IU/L Alkaline Phosphatase (42-121) IU/L Troponin I (<0.49) ng/mL B-Natriuretic Peptide (5-100) pg/mL Total Protein (6.7-8.2) g/dL Albumin (3.2-5.5) g/dL Globulin (2.1-4.2) g/dL Albumin/Globulin Ratio (1.0-2.2) TSH (0.34-5.60) uIU/mL ABX Reporting Has patient been on IV antibiotics over the past 48 hours?: Yes Sepsis Event Note (H) - Evaluation Current Stage of Sepsis: Ruled out Assessment/Plan - Problem List (1) Acute respiratory failure with hypoxia Impression: - Patient drove to the ED - No oxygen use at home - No hx of SOL, + COPD - Progressive SOB, leading to a poor quality of life in the past 1 year - Productive cough, + orthopnea - Has required oxygen 2-3L per nasal cannula, now for the 3rd day - 82% upon arrival to the ED, now low 90%s on 2-3L Plan: Scheduled Xopenex, incentive spirometry, sputum cx- new one pending, continue oxygen per nasal cannula (2) Cough Impression: - Continues to have a cough that resolves with turning up the oxygen - Continues on guaifenesin BID tablets - A possible culprit could be post nasal drip verses GERD related to his small h iatal hernia - A third possibility may be aspiration Plan: Continue oxygen supplement, provide scheduled and PRN nasal sprays, add Carafate, and await swallow study results on Wednesday (3) Dependence on supplemental oxygen Impression: - No prior home oxygen - no history of sleep apnea - Has required oxygen since being admitted - Recurrent treatment for pneumonia while in [place] for the winter in which he would get an IM injection of Rocephin and a steroid per patient - 2-4L per nasal cannula, difficult to wean - Cough results when oxygen is turned up Plan: Continue respiratory cares, nebulizer treatments, IV steroids- changing to PO in the AM, and pulmonary toileting (4) Gram-positive cocci in clusters Impression: - E. coli in clusters noted on sputum final results - Could be a contaminate - May be from GERD- mixed sample - Likely not from colonization - Repeat respiratory culture- pending - Fungal studies are pending - Starting Diflucan PO today for failure to improve Plan: Continue IV Zosyn, await new sputum sample (5) Acute congestive heart failure with left ventricular diastolic dysfunction Impression: - A preliminary echo report from today showed a grade 1 diastolic dysfunction, EF of 60% and an enlarged LA - Previously not on any beta blockers, and only minimal diuretic - On exam he is noted to have an enlarged abdominal girth, BLE pitting edema, requires oxygen, becomes easily winded and has orthopnea - Toprol created some worsening shortness of breath, so now switched to diltiazem - Status post bradycardia from 45-60's, now normalized with higher rates this morning 90-110's, so Dilt re-started - NICANOR romo applied and ordered Plan: Start oral dilt CD, continue spironolactone, and IV lasix (6) Cor pulmonale Impression: - A preliminary echo report from today shows a new finding of a moderately enlarged RV, normal PA pressures - On exam, he has an enlarged abdominal girth, chronic swelling to his BLEs and requires oxygen Plan: Continue spironolactone, high dose lasix, and monitor labs, weight, I/O (7) COPD (chronic obstructive pulmonary disease) Impression: - Admits to start smoking at age 14 years, quit a few years ago - Uses Tiotropium Br/Olodaterol HCl [Stiolto Respimat Inhal [place]] 2 puffs INH DAILY at home - Is still requiring oxygen Plan: Xopenex, prednisone, and empiric IV zosyn Qualifiers: COPD type: COPD with acute exacerbation Qualified Code(s): J44.1 - Chronic obstructive pulmonary disease with (acute) exacerbation (8) Atrial fibrillation Impression: - No rate control for home meds - Norvasc is contraindicated in diastolic dysfunction - INR was 1.9, so it needs to be less than 2 to start Eliquis - Eliquis is going well, now 2nd dose - Heart rates 90-110's this AM, so PO dilt CD initiated Plan: Restarting dilt since bradycardic, continue Eliquis and telemetry Qualifiers: Atrial fibrillation type: chronic Qualified Code(s): I48.2 - Chronic atrial fibrillation (9) Methadone dependence Impression: -Scheduled frequent dosing of methadone at home, continues here - Painful joints shoulders, hips, and feet - Attempting to wean Plan: Monitor for pain, or oversedation (10) Anxiety and depression Impression: - Easily becomes tearful with each exam - More so when speaking about late - No antidepressants on home med list - Will defer to primary, anxiety may improve if he is breathing better - Spoke with the patient's son via speaker phone in the room for a medical update which seemed to ease his mind Plan: Continue to educate and support (11) Hiatal hernia Impression: - Chest CT shows a small hiatal hernia - Patient unaware of this finding - Given teaching materials - on a PPI at home Plan: Continue PPI, eat upright, small meals, regular BMs (12) Constipation Impression: - Likely due to usp Methadone use - Had a BM today - Firm, not tender on exam - Added an as needed suppository, lactulose daily scheduled Plan: Encourage activity, take bowel meds, wean off Methadone when appropriate Qualifiers: Constipation type: slow transit constipation Qualified Code(s): K59.01 - Slow transit constipation
[2018-08-21] MEDS: FLUCONAZOLE 100 MG TABLET PO SCH (13:44)
[2018-08-21] MEDS ORDERED: methylPREDNISolone SUCCINATE 40 MG/ML VIAL IVP SCH (16:00)
[2018-08-21] MEDS: SUCRALFATE 1 GM/10 ML UDC PO SCH ×2 (17:25→21:45)
[2018-08-21] MEDS ORDERED: guaiFENesin 600 MG TABLET PO PRN (19:18)
[2018-08-21] MEDS: ATORVASTATIN 10 MG TABLET PO SCH (20:36)
[2018-08-21] MEDS: TAMSULOSIN 0.4 MG CAPSULE PO SCH (20:36)
[2018-08-21] MEDS: IPRATROPIUM 0.2 MG/ML NEB INH SCH (21:02)
[2018-08-22] MEDS: PIPERACILLIN/TAZOBACTAM 3.375 GM in SODIUM CHLORIDE 0.9% MINIBAG 100 ML IV SCH ×3 (00:09→11:57)
[2018-08-22] MEDS: SODIUM CHLORIDE FLUSH 0.9% 10 ML SYRINGE IVP SCH ×3 (00:10→17:53)
[2018-08-22] MEDS: METHADONE 5 MG TABLET PO SCH ×3 (06:14→20:42)
[2018-08-22] MEDS: methylPREDNISolone SUCCINATE 40 MG/ML VIAL IVP SCH ×2 (06:18→13:48)
[2018-08-22] MEDS: SODIUM CHLORIDE FLUSH 0.9% 10 ML SYRINGE IVP PRN ×3 (06:18→13:52)
[2018-08-22] MEDS: FUROSEMIDE 40 MG/4 ML VIAL IVP SCH ×2 (06:18→13:52)
[2018-08-22 06:32] LABS: BASOPHILS % (AUTO) 0.2 %; HGB - HEMOGLOBIN 13.9 g/dL (14.0-18.0); LYMPHOCYTES # (AUTO) 0.6 10^3/uL (1.5-3.5); LYMPHOCYTES % (AUTO) 4.9 %; MEAN CORPUSCULAR HEMOGLOBIN 29.3 pg (27.0-31.0); MEAN CORPUSCULAR VOLUME 88.8 fL (80.0-94.0); MEAN PLATELET VOLUME 7.1 fL (7.4-11.4); MONOCYTES # (AUTO) 0.4 10^3/uL (0.0-1.0); MONOCYTES % (AUTO) 3.5 %; NEUTROPHILS # (AUTO) 11.2 10^3/uL (1.5-6.6); NEUTROPHILS % (AUTO) 91.4 %; PLT - PLATELET COUNT 303 10^3/uL (130-450); RED BLOOD COUNT 4.73 10^6/uL (4.70-6.10); RED CELL DISTRIBUTION WIDTH 14.2 % (12.0-15.0); WHITE BLOOD COUNT 12.2 x10^3/uL (4.8-10.8)
[2018-08-22] MEDS: SUCRALFATE 1 GM/10 ML UDC PO SCH ×4 (06:32→22:35)
[2018-08-22 06:47] LABS: ALBUMIN 3.7 g/dL (3.2-5.5); ALBUMIN/GLOBULIN RATIO 1.4 (1.0-2.2); BILIRUBIN,TOTAL 0.9 mg/dL (0.2-1.0); CALCIUM 8.6 mg/dL (8.5-10.3); CREATININE 1.2 mg/dL (0.6-1.2); MAGNESIUM 2.3 mg/dL (1.7-2.8); TOTAL PROTEIN 6.4 g/dL (6.7-8.2)
[2018-08-22] MEDS: IPRATROPIUM 0.2 MG/ML NEB INH SCH ×3 (07:07→20:03)
[2018-08-22] MEDS: LEVALBUTEROL 1.25 MG/3 ML NEB INH SCH ×2 (07:07→13:11)
[2018-08-22] MEDS ORDERED: predniSONE 20 MG TABLET PO SCH (08:00)
[2018-08-22] MEDS: diltiaZEM CD 120 MG CAPSULE PO SCH (08:44)
[2018-08-22] MEDS: APIXABAN 5 MG TABLET PO SCH ×2 (08:44→20:41)
[2018-08-22] MEDS: SACCHAROMYCES BOULARDII 250 MG CAPSULE PO SCH ×2 (08:44→17:52)
[2018-08-22] MEDS: SENNA 8.6 MG TABLET PO SCH ×2 (08:45→20:51)
[2018-08-22] MEDS: OXYMETAZOLINE NASAL SPRAY NAS SCH ×2 (08:45→20:44)
[2018-08-22] MEDS: FLUCONAZOLE 100 MG TABLET PO SCH (08:45)
[2018-08-22] MEDS: LACTULOSE 10 GM /15 ML UDC PO SCH (08:46)
[2018-08-22] MEDS: SPIRONOLACTONE 25 MG TABLET PO SCH (08:47)
[2018-08-22] MEDS: POLYETHYLENE GLYCOL 3350 17 GM PACKET PO SCH (08:47)
[2018-08-22] MEDS: PANTOPRAZOLE 40 MG TABLET PO SCH ×2 (08:47→22:35)
[2018-08-22] MEDS: FLUTICASONE NASAL SPRAY NAS SCH (08:54)
--- NOTE | 2018-08-22 17:50 | PROVIDER PROGRESS NOTE ---
Subjective - Prog Note Date Prog Note Date: 08/22/18 Prog Note Time: 09:00 - Subjective Pt reports feeling: Improved Subjective: Al is concerned about his upcoming discharge and the expected changes. He denies chest pain, pressure, bleeding, a new rash, increased shortness of breath or a worsening productive cough. Current Medications - Current Medications Current Medications: Active Medications: Apixaban (Eliquis) 5 mg PO BID YADIEL Atorvastatin Calcium (Lipitor) 10 mg PO QPM YADIEL Benefiber 1 packet daily YADIEL Bisacodyl (Dulcolax Supp) 10 mg VT DAILY PRN Cefuroxime Axetil (Ceftin) 500 mg PO BID YADIEL Diltiazem HCl (Cardizem Cd) 180 mg PO DAILY YADIEL Fluconazole (Diflucan) 100 mg PO DAILY YADIEL Fluticasone Propionate (Flonase) 1 sprays RICK DAILY YADIEL Furosemide (Lasix Inj 40 Mg Vial) 40 mg IVP BIDDIURETIC YADIEL Guaifenesin (Mucinex) 600 mg PO BID PRN Ipratropium [place] (Atrovent) 0.5 mg INH RTTID YADIEL Lactulose (Enulose) 10 gm PO DAILY YADIEL Levalbuterol HCl (Xopenex) 1.25 mg INH Q4H PRN Lidocaine HCl (Xylocaine Uro-Jet 2%) 2.5 ml UR Q6H PRN Magnesium Citrate 296 ml PO ONCE PRN Methadone HCl 10 mg PO 1400 YADIEL Methadone HCl 20 mg PO 0600 YADIEL Methadone HCl 15 mg PO 2000 YADIEL Oxymetazoline HCl (Afrin) 2 sprays RICK BID YADIEL Pantoprazole Sodium (Protonix) 40 mg PO BID YADIEL Prednisone (Deltasone) 60 mg PO DAILYWM YADIEL Saccharomyces Boulardii (Florastor) 250 mg PO BIDWM YADIEL Senna (Senokot) 8.6 mg PO BID YADIEL Sodium Chloride ([place]) 2 sprays RICK Q4HR PRN Spironolactone (Aldactone) 25 mg PO DAILY YADIEL Sucralfate (Carafate) 1 gm PO 0700,1100,1600,2200 YADIEL Tamsulosin HCl (Flomax) 0.8 mg PO QPM [facility] Throat Lozenges (Cepacol) 1 lozenge MM Q2HR PRN HOME meds: Albuterol Sulfate [Proair Respiclick] 2 puffs INH Q4H PRN 08/19/18 Alfuzosin HCl [Uroxatral] 10 mg PO QPM 08/19/18 Amlodipine Besylate [Norvasc] 10 mg PO QPM 08/19/18 Atorvastatin [Lipitor] 10 mg PO QPM 08/19/18 Methadone HCl [Dolophine HCl] 10 mg PO 1400 08/19/18 Methadone HCl [Dolophine HCl] 15 mg PO 199908/19/18 Methadone HCl [Dolophine HCl] 20 mg PO 0600 08/19/18 Mometasone Furoate [Asmanex] 2 puffs INH BID 08/19/18 Polyethylene Glycol 3350 [Miralax] 17 gm PO BID PRN 08/19/18 Senna [Senokot] 17.2 mg PO BID PRN 08/19/18 Tiotropium Br/Olodaterol HCl [Stiolto Respimat Inhal [place]] 2 puffs INH DAILY 08/19/18 Warfarin [Coumadin] 2.5 mg PO TUSA@209908/19/18 Warfarin [Coumadin] 5 mg PO SUMOWEFR@209908/19/18 Objective - Vital Signs/Intake & Output Reviewed Vital Signs: Yes Vital Signs: Vital Signs x48h Temp Pulse Pulse Resp BP Pulse Ox 08/22/18 15:38 36.7 C 86 14 138/70 H 94 08/22/18 15:11 36.5 C 88 16 92 08/22/18 13:35 88 08/22/18 13:15 74 16 08/22/18 12:09 36.5 C 83 18 134/80 H 94 Intake & Output: Intake & Output 08/19/18 08/20/18 08/21/18 08/22/18 23:59 23:59 23:59 23:59 Intake Total 1260 1970 1772 1570 Output Total 381 343 3053 1850 Balance 1000 1570 -1906 -280 - Objective General Appearance: positive: No acute distress, Alert Eyes Bilateral: positive: PERRL Eyes: OU Conjunctivae pale ENT: positive: Pharynx nml, No signs of dehydration Neck: positive: Nml inspection, Thyroid nml, No JVD, Trachea midline Respiratory: positive: Chest non-tender, No respiratory distress, Breath sounds nml, Rhonchi Cardiovascular: positive: No gallop, Irregularly irregular, Systolic murmur, Decreased pulse(s) Peripheral Pulses: 1+ Radial (R), 1+ Radial (L) Abdomen: positive: Non-tender, Nml bowel sounds, Other (rounded, soft) Back: positive: Nml inspection Skin: positive: No rash, Warm, Dry Extremities: positive: Non-tender, Full ROM, Pedal edema (left greater than right) Neurologic/Psychiatric: positive: Oriented x3, CN's nml (2-12), Motor nml, Sensation nml, Mood/affect nml Reflexes: Bicep (R): 3+, Bicep (L): 3+, Ankle (R): 3+, Ankle (L): 3+ - Lab Results Fish Bones: 08/22/18 06:11 08/22/18 06:11 Other Labs: Lab Results x24hrs 08/22/18 08/22/18 Range/Units 06:11 06:11 WBC 12.2 H (4.8-10.8) x10^3/uL RBC 4.73 (4.70-6.10) 10^6/uL Hgb 13.9 L (14.0-18.0) g/dL Hct 42.0 (42.0-52.0) % MCV 88.8 (80.0-94.0) fL MCH 29.3 (27.0-31.0) pg MCHC 33.0 (32.0-36.0) g/dL RDW 14.2 (12.0-15.0) % Plt Count 303 (130-450) 10^3/uL MPV 7.1 L (7.4-11.4) fL Neut # (Auto) 11.2 H (1.5-6.6) 10^3/uL Lymph # (Auto) 0.6 L (1.5-3.5) 10^3/uL [place] # (Auto) 0.4 (0.0-1.0) 10^3/uL Eos # (Auto) 0.0 (0.0-0.7) 10^3/uL Baso # (Auto) 0.0 (0.0-0.1) 10^3/uL Absolute Nucleated RBC 0.01 x10^3/uL Nucleated RBC % 0.1 /100WBC Sodium 137 (135-145) mmol/L Potassium 3.8 (3.5-5.0) mmol/L Chloride 96 L (101-111) mmol/L Carbon Dioxide 33 H (21-32) mmol/L Anion Gap 8.0 (6-13) BUN 33 H (6-20) mg/dL Creatinine 1.2 (0.6-1.2) mg/dL Estimated GFR (MDRD) 59 L (>89) Glucose 150 H (70-100) mg/dL Calcium 8.6 (8.5-10.3) mg/dL Magnesium 2.3 (1.7-2.8) mg/dL Total Bilirubin 0.9 (0.2-1.0) mg/dL AST 26 (10-42) IU/L ALT 21 (10-60) IU/L Alkaline Phosphatase 44 (42-121) IU/L Total Protein 6.4 L (6.7-8.2) g/dL Albumin 3.7 (3.2-5.5) g/dL Globulin 2.7 (2.1-4.2) g/dL Albumin/Globulin Ratio 1.4 (1.0-2.2) ABX Reporting Has patient been on IV antibiotics over the past 48 hours?: Yes Sepsis Event Note (H) - Evaluation Current Stage of Sepsis: Ruled out Assessment/Plan - Problem List (1) Acute respiratory failure with hypoxia Impression: - Patient drove to the ED - No oxygen use at home - No hx of SOL, + COPD - Progressive SOB, leading to a poor quality of life in the past 1 year - Productive cough, + orthopnea - Has required oxygen 2-3L per nasal cannula, now for the 4th day - 82% upon arrival to the ED, now low 90%s on 2-3L - Sputum cultures have shown no identifiable pathogen - Walking oxygen test ordered to be performed prior to discharge in the AM Plan: Scheduled Xopenex, incentive spirometry, continue oxygen per nasal cannula (2) Cough Impression: - Continues to have a cough that resolves with turning up the oxygen - Continues on guaifenesin BID tablets, now changed to PRN since they can be constipation or increased the chances of urinary retention - A possible culprit could be post nasal drip verses GERD related to his small hiatal hernia - Scheduled carafate was added for symptom control - A third possibility may be aspiration, but a bedside swallow evaluation today rules this out and he is not showing signs of aspiration Plan: Continue oxygen supplement, provide scheduled and PRN nasal sprays, continue Carafate (3) Dependence on supplemental oxygen Impression: - No prior home oxygen - no history of sleep apnea - Has required oxygen since being admitted - Recurrent treatment for pneumonia while in [place] for the winter in which he would get an IM injection of Rocephin and a steroid per patient - 2-4L per nasal cannula, difficult to wean - Cough resolves when oxygen is turned up Plan: Continue respiratory cares, nebulizer treatments, oral steroids, and pulmonary toileting (4) Gram-positive cocci in clusters Impression: - E. coli in clusters noted on sputum final results - Could be a contaminate - May be from GERD- mixed sample - Likely not from colonization - Repeat respiratory culture shows no identifiable pathogen - Fungal studies (blood serum) are pending since they are a send out lab - Continue Diflucan PO for failure to improve Plan: Continue PO Ceftin, PO prednisone, treat COPD exacerbation (5) Acute congestive heart failure with left ventricular diastolic dysfunction Impression: - A preliminary echo report from today showed a grade 1 diastolic dysfunction, EF of 60% and an enlarged LA - Previously not on any beta blockers, and only minimal diuretic - On exam he is noted to have an enlarged abdominal girth, BLE pitting edema, requires oxygen, becomes easily winded and has orthopnea - Toprol created some worsening shortness of breath, so switched to diltiazem titrated up based on telemetry rate trends - Status post bradycardia from 45-60's, now normalized - NICANOR hose applied and ordered Plan: Continue dilt CD, titrated up for the AM, continue spironolactone, and PO lasix (6) Cor pulmonale Impression: - A preliminary echo report from shows a new finding of a moderately enlarged RV, normal PA pressures - On exam, he has an enlarged abdominal girth, chronic swelling to his BLEs and requires oxygen - NICANOR hose ordered and applied by myself Plan: Continue spironolactone, lasix, and monitor labs, weight, I/O (7) COPD (chronic obstructive pulmonary disease) Impression: - Admits to start smoking at age 14 years, quit a few years ago - Uses Tiotropium Br/Olodaterol HCl [Stiolto Respimat Inhal [place]] 2 puffs INH DAILY at home - Is still requiring oxygen - Recommended pulmonary rehab, and ordered - [place] has approved 90 days of pulmonary rehab per case management Plan: Xopenex as needed, flutter valve use, prednisone, and PO Ceftin to complete his course Qualifiers: COPD type: COPD with acute exacerbation Qualified Code(s): J44.1 - Chronic obstructive pulmonary disease with (acute) exacerbation (8) Atrial fibrillation Impression: - No rate control for home meds - Norvasc is contraindicated in diastolic dysfunction - INR was 1.9, so it needs to be less than 2 to start Eliquis - Eliquis is going well, now 2nd dose - Heart rates still running 85-90 this afternoon, so titrated up to start in the AM Plan: Continue Dilt, continue Eliquis and telemetry Qualifiers: Atrial fibrillation type: chronic Qualified Code(s): I48.2 - Chronic atrial fibrillation (9) Methadone dependence Impression: -Scheduled frequent dosing of methadone at home, continues here - Painful joints shoulders, hips, and feet - Attempting to wean with PCP - Recommend to continue as other pain treatments create drowsiness and may lead to falls - Methadone has allowed for a good level of functioning with his account of care home use Plan: Monitor for pain, or over sedation (10) Anxiety and depression Impression: - Easily becomes tearful with each exam - More so when speaking about late - No antidepressants on home med list - Will defer to primary, anxiety may improve if he is breathing better - Spoke with the patient's son via speaker phone in the room for a medical updat e which seemed to ease his mind- yesterday Plan: Continue to educate and support (11) Hiatal hernia Impression: - Chest CT shows a small hiatal hernia - Patient unaware of this finding - Given teaching materials - on a PPI at home Plan: Continue PPI, eat upright, small meals, regular BMs (12) Constipation Impression: - Likely due to care home Methadone use - Has been having daily BMs but admits to feeling behind schedule - Firm, not tender on exam - Added an as needed suppository, lactulose daily scheduled Plan: Encourage activity, take bowel meds, wean off Methadone when appropriate by PCP Qualifiers: Constipation type: slow transit constipation Qualified Code(s): K59.01 - Slow transit constipation
[2018-08-22] MEDS: cefUROXime axetil 250 MG TABLET PO SCH (18:40)
[2018-08-22] MEDS: LEVALBUTEROL 1.25 MG/3 ML NEB INH PRN (20:03)
[2018-08-22] MEDS: ATORVASTATIN 10 MG TABLET PO SCH (20:41)
[2018-08-22] MEDS: TAMSULOSIN 0.4 MG CAPSULE PO SCH (20:51)
[2018-08-23] MEDS ORDERED: FUROSEMIDE 40 MG TABLET PO SCH ×2 (06:00→14:00)
[2018-08-23] MEDS: METHADONE 5 MG TABLET PO SCH (06:37)
[2018-08-23] MEDS: SUCRALFATE 1 GM/10 ML UDC PO SCH ×2 (06:38→11:52)
[2018-08-23] MEDS: SODIUM CHLORIDE FLUSH 0.9% 10 ML SYRINGE IVP SCH ×2 (06:38→08:56)
[2018-08-23] MEDS: APIXABAN 5 MG TABLET PO SCH (08:45)
[2018-08-23] MEDS: SACCHAROMYCES BOULARDII 250 MG CAPSULE PO SCH (08:45)
[2018-08-23] MEDS: cefUROXime axetil 250 MG TABLET PO SCH (08:46)
[2018-08-23 08:48] LABS: BASOPHILS % (AUTO) 0.2 %; EOSINOPHILS % (AUTO) 0.2 %; HGB - HEMOGLOBIN 14.9 g/dL (14.0-18.0); LYMPHOCYTES # (AUTO) 0.6 10^3/uL (1.5-3.5); LYMPHOCYTES % (AUTO) 4.1 %; MEAN CORPUSCULAR HEMOGLOBIN 29.4 pg (27.0-31.0); MEAN CORPUSCULAR HGB CONC 33.2 g/dL (32.0-36.0); MEAN CORPUSCULAR VOLUME 88.6 fL (80.0-94.0); MEAN PLATELET VOLUME 6.9 fL (7.4-11.4); MONOCYTES # (AUTO) 0.9 10^3/uL (0.0-1.0); NEUTROPHILS # (AUTO) 11.9 10^3/uL (1.5-6.6); NEUTROPHILS % (AUTO) 88.5 %; PLT - PLATELET COUNT 300 10^3/uL (130-450); RED BLOOD COUNT 5.08 10^6/uL (4.70-6.10); RED CELL DISTRIBUTION WIDTH 14.2 % (12.0-15.0); WHITE BLOOD COUNT 13.4 x10^3/uL (4.8-10.8)
[2018-08-23] MEDS: SENNA 8.6 MG TABLET PO SCH (08:53)
[2018-08-23] MEDS: LACTULOSE 10 GM /15 ML UDC PO SCH (08:54)
[2018-08-23] MEDS: SPIRONOLACTONE 25 MG TABLET PO SCH (08:57)
[2018-08-23] MEDS: FLUTICASONE NASAL SPRAY NAS SCH (08:59)
[2018-08-23 09:00] LABS: ALBUMIN 4.1 g/dL (3.2-5.5); ALBUMIN/GLOBULIN RATIO 1.4 (1.0-2.2); BILIRUBIN,TOTAL 1.2 mg/dL (0.2-1.0); CALCIUM 9.1 mg/dL (8.5-10.3); CREATININE 1.2 mg/dL (0.6-1.2); MAGNESIUM 2.5 mg/dL (1.7-2.8); TOTAL PROTEIN 7.1 g/dL (6.7-8.2)
[2018-08-23] MEDS ORDERED: diltiaZEM CD 180 MG CAPSULE PO SCH (09:00)
[2018-08-23] MEDS ORDERED: FLUCONAZOLE 100 MG TABLET PO SCH (09:00)
[2018-08-23] MEDS ORDERED: WHEAT DEXTRIN POWDER PACKET PO SCH (09:00)
[2018-08-23] MEDS: OXYMETAZOLINE NASAL SPRAY NAS SCH (09:00)
[2018-08-23] MEDS: LEVALBUTEROL 1.25 MG/3 ML NEB INH PRN (09:45)
[2018-08-23] MEDS: IPRATROPIUM 0.2 MG/ML NEB INH SCH (09:45)
[2018-08-23] MEDS: PANTOPRAZOLE 40 MG TABLET PO SCH (10:41)
[2018-08-23] MEDS ORDERED: predniSONE 20 MG TABLET PO SCH (10:42)
--- NOTE | 2018-08-23 12:36 | Discharge Plan ---
Discharge Plan Disposition: Home, Self Care Condition: Poor Prescriptions: Apixaban [Eliquis] 5 mg PO BID #60 tab.ds.pk Cephalexin [Keflex] 500 mg PO BID #10 capsule diltiaZEM CD [Cardizem Cd] 180 mg PO DAILY #10 capsule Furosemide [Lasix] 20 mg PO BID #60 tablet predniSONE [Deltasone] 10 mg PO [id number] #31 tab Saccharomyces Boulardii [Florastor] 250 mg PO BID #10 capsule Spironolactone 25 mg PO DAILY #30 tablet Diet: Regular Activity Restrictions: Activity as Tolerated Shower Restrictions: No (fall precaution, caregiver closely monitor) Instruction Topics: Apixaban oral tablets, Cephalexin tablets or capsules, Prednisone tablets, Diltiazem tablets, Furosemide tablets, Spironolactone tablets Additional Instructions or Follow Up instructions: you may followup your PCP in one week, followup RT instruction for your O2 tank usage. For your Afib, new medication Cardizem and Apixaban are prescribed for you to control HR and prevention of blood clots. Keflex is prescribed for your lung infection. Should your symptoms return or worsen, you may present ER or call 911 or your PCP for help. No Smoking: If you smoke, Please STOP! Call for help. Follow-up with: Catracho Valentino MD [Primary Care Provider] -
--- NOTE | 2018-08-23 13:15 | DISCHARGE SUMMARY ---
Discharge Summary Discharge Date: 08/23/18 Discharging Provider: GUZMAN Primary Care Provider: Dr. Valentino Condition at Discharge: Poor Discharge Disposition: 01 Home, Self Care Discharge Facility Name: home - DIAGNOSES Admission Diagnoses: (1) Acute respiratory failure with hypoxia (2) COPD exacerbation (3) Atrial fibrillation (4) Hypertension (5) Hyperlipemia (6) BPH (benign prostatic hyperplasia) (7) GERD (gastroesophageal reflux disease) (8) Chronic pain Discharge Diagnoses with Status of Each Condition: (1) Acute respiratory failure with hypoxia (2) COPD exacerbation (3) Atrial fibrillation (4) Hypertension (5) Hyperlipemia (6) BPH (benign prostatic hyperplasia) (7) GERD (gastroesophageal reflux disease) (8) Chronic pain (9) Gram-positive cocci in clusters (10) Acute congestive heart failure with left ventricular diastolic dysfunction (11) Hiatal hernia - HPI History of Present Illness: refer from Dr. Spann's HPI on 08/19/18 Patient seen on 08/18/18 at 20:30pm Patient is a 73 y/o male with Hx of COPD/ ?emphysema who presented to the ED with complain of dyspnea. 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 He saw his PCP and was administered IM steroid shots and antibiotics (rocephin) with no significant improvement. He came in today because he woke up unable to breath. He reported a productive yellowish sputum. He denied chest pain, abd pain, nausea, vomiting or diarrhea. He reports chills. he has been very cold since return from [place]. He was given breathing treatment and steroids in the ED with marked improvement. However, his O2Sat drops to 83% when taken off oxygen. He does not wear oxygen at home. As a result of his clinical presentation, he is being admitted for further management. - HOSPITAL COURSE Hospital Course: (1) Acute respiratory failure with hypoxia pt has no hypoxic at rest, 92% on room air. pt is prescribed antibiotics to finish the treatment course. (2) COPD exacerbation stable now. pt is prescribed O2 for d/c to home. pt has no hypoxic at rest, 92% on room air. with ambulation on room air, he was hypoxia with O2 sats of 88%. with exertion on 2 lpm nasal cannula, his O2 sats improved to 92%. I am ordering home O2, room air at rest, and 2 lpm nasal cannular with exertion to help treat with his COPD and hypoxia (3) Atrial fibrillation stable, pt is prescribed Cardizem and Apixaban for HR control and prevention of blood clots (4) Hypertension stable, pt is prescribed Lasix and spironolactone for BP control (5) Hyperlipemia stable, continue home meds (6) BPH (benign prostatic hyperplasia) stable, continue home meds (7) GERD (gastroesophageal reflux disease) stable, continue home meds (8) Chronic pain stable, continue home meds (9) Gram-positive cocci in clusters pt is prescribed antibiotics to finish the treatment course (10) Acute congestive heart failure with left ventricular diastolic dysfunction stable, pt is prescribed Lasix and spironolactone for BP control, followup PCP for further management. Pt had ECHO reveals normal EF. (11) Hiatal hernia pt was informed and discussed with the CT of abdomen result. pt state he had appointment on next a few days to see his surgeon. - ALLERGIES Allergies/Adverse Reactions: Allergies Allergy/AdvReac Type Severity Reaction Status Date / Time phenytoin sodium * Allergy Rash Verified 08/18/18 18:24 [From Dilantin] phenytoin sodium extended * Allergy Rash Verified 08/18/18 18:24 [From Dilantin] - MEDICATIONS Home Medications: Ambulatory Orders Medication Instructions Recorded Confirmed Albuterol Sulfate [Proair 2 puffs INH Q4H PRN 08/19/18 08/19/18 Respiclick] Alfuzosin HCl [Uroxatral] 10 mg PO QPM 08/19/18 08/19/18 Apixaban [Eliquis] 5 mg PO BID #60 tab.ds.pk 08/19/18 Atorvastatin [Lipitor] 10 mg PO QPM 08/19/18 08/19/18 Methadone HCl [Dolophine HCl] 10 mg PO 1400 08/19/18 08/19/18 Methadone HCl [Dolophine HCl] 15 mg PO 2000 08/19/18 08/19/18 Methadone HCl [Dolophine HCl] 20 mg PO 0600 08/19/18 08/19/18 Mometasone Furoate [Asmanex] 2 puffs INH BID 08/19/18 08/19/18 Polyethylene Glycol 3350 [Miralax] 17 gm PO BID PRN 08/19/18 08/19/18 Senna [Senokot] 17.2 mg PO BID PRN 08/19/18 08/19/18 Tiotropium Br/Olodaterol HCl 2 puffs INH DAILY 08/19/18 08/19/18 [Stiolto Respimat Inhal [place]] Furosemide [Lasix] 20 mg PO BID #60 tablet 08/22/18 Spironolactone 25 mg PO DAILY #30 tablet 08/22/18 Cephalexin [Keflex] 500 mg PO BID #10 capsule 08/23/18 Saccharomyces Boulardii [Florastor] 250 mg PO BID #10 capsule 08/23/18 diltiaZEM CD [Cardizem Cd] 180 mg PO DAILY #10 capsule 08/23/18 predniSONE [Deltasone] 10 mg PO [id number] #31 tab 08/23/18 - PHYSICAL EXAM AT DISCHARGE General Appearance: positive: No acute distress, Alert. negative: Lethargic Eyes Bilateral: positive: Normal inspection, PERRL, No lid inflammation, Conjunctivae nml ENT: positive: ENT inspection nml, Pharynx nml, No signs of dehydration. negative: Purulent nasal drainage, Pharyngeal erythema, Oral lesions Neck: positive: Nml inspection, Thyroid nml, No JVD, Trachea midline. negative: Thyromegaly, Lymphadenopathy (R), Lymphadenopathy (L), Stiff neck, Swelling/bruising, Tracheal deviation Respiratory: positive: Chest non-tender, No respiratory distress. negative: Wheezes, Rales, Rhonchi Cardiovascular: positive: Regular rate & rhythm, No murmur, No gallop. negative: Irregularly irregular, Extrasystoles, Tachycardia, Bradycardia, JVD present, Systolic murmur, Diastolic murmur Peripheral Pulses: positive: 2+ Abdomen: positive: Non-tender, No organomegaly, Nml bowel sounds, No distention. negative: Tenderness, Guarding, Rebound Back: positive: Nml inspection. negative: CVA tenderness (R), CVA tenderness (L) Skin: positive: Color nml, No rash, Warm, Dry. negative: Cyanosis, Diaphoresis, Pallor Extremities: positive: Non-tender, Full ROM, Nml appearance. negative: Calf tenderness, Joint swelling, Samm's sign/cords Neurologic/Psychiatric: positive: Oriented x3, Motor nml, Sensation nml, Mood/affect nml. negative: Weakness, Sensory loss, Facial droop, Slurred/abnml speech, Depressed mood/affect - LABS Result Diagrams: 08/23/18 08:40 08/23/18 08:40 - SEPSIS Current Stage of Sepsis: Ruled out - FOLLOW UP Follow Up: you may followup your PCP in one week, followup RT instruction for your O2 tank usage. For your Afib, new medication Cardizem and Apixaban are prescribed for you to control HR and prevention of blood clots. Keflex is prescribed for your lung infection. Should your symptoms return or worsen, you may present ER or call 911 or your PCP for help. - TIME SPENT Time Spent in Discharge (Minutes): 50
[2018-08-23 13:33] VITALS: BP 140/75
[2018-08-23] MEDS ORDERED: FUROSEMIDE 20 MG TABLET PO SCH (14:00)
[2018-08-24] MEDS ORDERED: predniSONE 20 MG TABLET PO SCH (08:00)
== END 2018-08-23 14:10 | disposition home or self-care (01) | DRG 189 ==
LOC: ED 18:16 → OBS 21:32 → OBSVTOIN 08-20 11:44 → MS2 08-20 14:26
PROVIDERS: ADMIT Internal Medicine; ATTEND Nurse Practitioner
DX: J96.01 Acute respiratory failure with hypoxia (principal); I50.31 Acute diastolic (congestive) heart failure; J44.1 Chronic obstructive pulmonary disease with (acute) exacerbation; F11.20 Opioid dependence, uncomplicated; I48.2 Chronic atrial fibrillation; Z79.02 Long term (current) use of antithrombotics/antiplatelets; G89.29 Other chronic pain; M54.9 Dorsalgia, unspecified; I11.0 Hypertensive heart disease with heart failure; E78.5 Hyperlipidemia, unspecified; N40.0 Benign prostatic hyperplasia without lower urinary tract symptoms; K21.9 Gastro-esophageal reflux disease without esophagitis; K44.9 Diaphragmatic hernia without obstruction or gangrene; E78.00 Pure hypercholesterolemia, unspecified; Z86.73 Personal history of transient ischemic attack (TIA), and cerebral infarction without residual deficits; F10.21 Alcohol dependence, in remission; I27.81 Cor pulmonale (chronic); K59.01 Slow transit constipation; Z99.81 Dependence on supplemental oxygen; Z87.891 Personal history of nicotine dependence; F41.9 Anxiety disorder, unspecified; F32.9 Major depressive disorder, single episode, unspecified
CPT/HCPCS: 36415; 71045; 71250; 80048; 80053; 81599; 83036; 83605; 83690; 83735; 83880; 84443; 84484; 85025; 85610; 87040; 87070; 87077; 87181; 87205; 87275; 87276; 92610; 93005; 93306; 94640; 94761; 96365; 96366; 96375; 99284; 99285; A9270; G0378; J7512

== ENCOUNTER 2018-09-16 08:00 | Outpatient (CLI) | payer OTHER | END 2018-09-16 23:59 | disposition home or self-care (01) | LOC: LAB.R 08:00 | PROVIDERS: ATTEND Registered Nurse | DX: R06.02 Shortness of breath (principal); J44.9 Chronic obstructive pulmonary disease, unspecified | CPT/HCPCS: 87070; 87077; 87205 ==

== ENCOUNTER 2020-01-30 10:53 | Outpatient (CLI) | payer MEDICARE, BC, OTHER ==
[2020-01-30 15:11] LABS: BASOPHILS # (AUTO) 0.1 10^3/uL (0.0-0.1); BASOPHILS % (AUTO) 0.7 %; EOSINOPHILS # (AUTO) 0.1 10^3/uL (0.0-0.7); EOSINOPHILS % (AUTO) 1.3 %; LYMPHOCYTES # (AUTO) 1.9 10^3/uL (1.5-3.5); LYMPHOCYTES % (AUTO) 24.7 %; MEAN CORPUSCULAR HEMOGLOBIN 30.5 pg (27.0-31.0); MEAN CORPUSCULAR HGB CONC 32.7 g/dL (32.0-36.0); MEAN CORPUSCULAR VOLUME 93.3 fL (80.0-94.0); MEAN PLATELET VOLUME 10.1 fL (7.4-11.4); MONOCYTES # (AUTO) 0.7 10^3/uL (0.0-1.0); MONOCYTES % (AUTO) 8.9 %; NEUTROPHILS # (AUTO) 4.8 10^3/uL (1.5-6.6); NEUTROPHILS % (AUTO) 63.9 %; PLT - PLATELET COUNT 246 10^3/uL (130-450); RED BLOOD COUNT 5.24 10^6/uL (4.70-6.10); RED CELL DISTRIBUTION WIDTH 13.2 % (12.0-15.0); WHITE BLOOD COUNT 7.5 x10^3/uL (4.8-10.8)
[2020-01-30 15:26] LABS: INR 1.6 (0.8-1.2); PT - PROTHROMBIN TIME 17.6 secs (9.9-12.6)
[2020-01-30 15:39] LABS: ALBUMIN 4.6 g/dL (3.2-5.5); ALBUMIN/GLOBULIN RATIO 1.5 (1.0-2.2); ALKALINE PHOSPHATASE 70 IU/L (42-121); ALT ALANINE AMINOTRANSFERASE 23 IU/L (10-60); AST ASPARTATE AMINOTRANSFERASE 32 IU/L (10-42); BILIRUBIN,TOTAL 1.1 mg/dL (0.2-1.0); BUN - BLOOD UREA NITROGEN 28 mg/dL (6-20); CALCIUM 9.6 mg/dL (8.5-10.3); CARBON DIOXIDE - CO2 29 mmol/L (21-32); CHLORIDE 96 mmol/L (101-111); CHOL/HDL RATIO 2.1 (<5.0); CHOLESTEROL 133 mg/dL; CREATININE 1.5 mg/dL (0.6-1.2); GLUCOSE 108 mg/dL (70-100); HDL CHOLESTEROL 62 mg/dL; LDL CHOLESTEROL,CALCULATED 58 mg/dL; LDL/HDL RATIO 0.9 (<3.6); SODIUM 136 mmol/L (135-145); TOTAL PROTEIN 7.7 g/dL (6.7-8.2); VLDL CHOLESTEROL 13 mg/dL
== END 2020-01-30 10:54 | disposition home or self-care (01) ==
LOC: LAB.S 10:53
PROVIDERS: ATTEND Registered Nurse
DX: J44.9 Chronic obstructive pulmonary disease, unspecified (principal); I48.0 Paroxysmal atrial fibrillation; K21.9 Gastro-esophageal reflux disease without esophagitis; Z99.81 Dependence on supplemental oxygen; Z79.01 Long term (current) use of anticoagulants
CPT/HCPCS: 36415; 80053; 80061; 81599; 83721; 84443; 85025; 85610; 86480

== ENCOUNTER 2021-01-26 11:04 | Outpatient (CLI) | payer OTHER ==
--- NOTE | 2021-01-26 12:02 | Ultrasound Report ---
PROCEDURE: Abdomen Limited INDICATIONS: HCC SURVEILLANCE TECHNIQUE: Real-time focused scanning was performed of the abdomen, with image documentation. COMPARISON: CT 02/05/2017 FINDINGS: The right kidney has been removed. Evaluation of the liver is limited, secondary to overlying bowel gas. No focal liver abnormality is s een. The gallbladder appears distended. No gallstones or sludge can be seen. The gallbladder wall does not appear thickened. There is no specific pericholecystic fluid. The sonographic Gallego's sign is negat antwon. The common bile duct is not well seen. The pancreas is obscured by bowel gas. This study is slightly limited by bowel gas and body habitus. IMPRESSION: Highly limited examination. No significant liver abnormality can be seen on this study. Prominent gallbladder, without additional gallbladder abnormality identified. Status post right nephrectomy. Reviewed by: Scot De La Cruz MD on 01/26/2021 11:01 AM GERARDO Approved by: Scot De La Cruz MD on 01/26/2021 11:01 AM GERARDO Station ID: [id number]
== END 2021-01-26 11:05 | disposition home or self-care (01) ==
LOC: DI 11:04
PROVIDERS: ATTEND Internal Medicine
DX: C22.0 Liver cell carcinoma (principal); Z90.5 Acquired absence of kidney

== ENCOUNTER 2021-02-06 12:22 | Outpatient (CLI) | payer OTHER ==
--- NOTE | 2021-02-07 09:53 | Mammography Report ---
MALE BILATERAL DIGITAL DIAGNOSTIC MAMMOGRAM 3D/2D: 02/06/2021 CLINICAL: Bilateral breast swelling x1 year. No prior exams were available for comparison. There are benign lymph nodes in both breasts. No significant masses, calcifications, or other findings are seen in either breast. IMPRESSION: BENIGN There is no mammographic evidence of malignancy. Recommend clinical follow up and return if any babb . This exam was interpreted at Station ID: [id number]. NOTE: For mammograms, a report in lay terms will be sent to the patient. Approximately 15% of breast malignancies will not be visualized mammographically. In the management of a palpable breast mass, a negative mammogram must not discourage biopsy of a clinically suspicious lesion. Electronically Signed By: Chong Van acr/:02/06/2021 13:21:15 ACR BI-RADS Category 2: Benign Finding(s) 3342F PARENCHYMAL PATTERN: (F) - The breast(s) demonstrate(s) diffuse fatty replacement. BI-RADS CATEGORY: (2) - 2 RECOMMENDATION: (ANNUAL) - Recommend routine annual screening mammography. [id number] 1 year screening LATERALITY: (B)
== END 2021-02-06 12:23 | disposition home or self-care (01) ==
LOC: DI 12:22
PROVIDERS: ATTEND Internal Medicine
DX: N62 Hypertrophy of breast (principal)